=== PATIENT | female | born 1950 | race Caucasian/White ===

== ENCOUNTER → 2017-11-26 | Outpatient (CLI) | payer MEDICARE, OTHER ==
[~2017-11-26] MED LIST: (None)20 M1 PO; ALBU2.5V5 NEB; ALBU90OI6; ANORO ELLIPTA1 EACH INH; CETI5; Duoneb 2.5-0.5 M3 ML INH; Flovent 220 Ora12 GM; MAGCHL64ER; MAGNESIUM PO; NEBI5 PO; PYRIDOXINE PO; TUSSIONEX PENN115 ML; VITAMIN D2400 UNIT PO; Zantac150 MG PO; [UNRECOGNIZED DRUG - OTHER] PO
[2017-11-26 11:43] LABS: Influenza A Negative (NEGATIVE); Influenza B Negative (NEGATIVE)
== END | disposition home or self-care (01) ==
LOC: LAB 11:16
PROVIDERS: Hospitalist
DX: J20.9 Acute bronchitis, unspecified (principal); R05 Cough
CPT/HCPCS: 87804

== ENCOUNTER 2018-04-20 15:24 | Emergency (ER) | payer MEDICARE, OTHER ==
[~2018-04-20] VITALS: Ht 160 cm; Wt 74.8 kg
[2018-04-20] MEDS ORDERED: MAGCHL64ER (15:31)
[2018-04-20] MEDS ORDERED: ALBU90OI6 (15:31)
[2018-04-20] MEDS ORDERED: NEBI5 PO (15:31)
[2018-04-20] MEDS ORDERED: ANORO ELLIPTA1 EACH INH (15:32)
[2018-04-20] MEDS ORDERED: TUSSIONEX PENN115 ML (15:32)
[2018-04-20] MEDS ORDERED: Zantac150 MG PO (15:32)
[2018-04-20] MEDS ORDERED: CETI5 (15:32)
[2018-04-20] MEDS ORDERED: Flovent 220 Ora12 GM (15:32)
[2018-04-20] MEDS ORDERED: PYRIDOXINE PO (15:55)
[2018-04-20] MEDS ORDERED: MAGNESIUM PO (15:55)
[2018-04-20 15:56] LABS: BASOPHILS ABSOLUTE AUTO 0.06 K/mm3 (0.00-0.23); BASOPHILS PERCENT AUTO 1 % (0-2); EOSINOPHILS ABSOLUTE AUTO 0.15 K/mm3 (0.00-0.68); EOSINOPHILS PERCENT AUTO 2 % (0-6); Hematocrit 48.2 % (33.0-51.0); Hemoglobin 15.9 g/dL (11.5-16.0); IMMATURE GRAN ABSOLUTE AUTO 0.02 K/mm3 (0.00-0.10); IMMATURE GRAN PERCENT AUTO 0 % (0-1); LYMPHOCYTES ABSOLUTE AUTO 1.59 K/mm3 (0.84-5.20); LYMPHOCYTES PERCENT AUTO 21 % (21-46); MONOCYTES ABSOLUTE AUTO 0.72 K/mm3 (0.16-1.47); MONOCYTES PERCENT AUTO 9 % (4-13); Mean Corpuscular HGB 29.7 pg (26.0-34.0); Mean Corpuscular Volume 90 fL (80-100); Mean Platelet Volume 9.9 fL (9.1-12.4); NEUTROPHILS ABSOLUTE AUTO 5.09 K/mm3 (1.96-9.15); NEUTROPHILS PERCENT AUTO 67 % (41-73); Platelet Count 261 K/mm3 (150-400); RDW Coefficient Variation 12.5 % (11.7-14.2); RDW Standard Deviation 40.8 fL (35.1-46.3); Red Blood Cell Count 5.35 M/mm3 (3.80-5.20); White Blood Cell Count 7.63 K/mm3 (4.00-11.30)
[2018-04-20] MEDS ORDERED: [UNRECOGNIZED DRUG - OTHER] PO (15:58)
[2018-04-20] MEDS ORDERED: VITAMIN D2400 UNIT PO (15:58)
[2018-04-20 16:24] LABS: Alanine Aminotransfer (ALT/SGP 34 U/L (12-78); Albumin, Blood 3.6 g/dL (3.4-5.0); Albumin/Globulin Ratio 0.9 (0.8-1.8); Alk Phos 139 U/L (50-136); Anion Gap 7 mmol/L (6-16); Aspartate Aminotrans (AST/SGOT 22 U/L (12-37); Bilirubin, Total 0.2 mg/dL (0.1-1.0); Blood Urea Nitrogen 18 mg/dL (8-24); Bun/Creatinine Ratio 15.1 (12.0-20.0); CO2, Blood 26 mmol/L (21-32); Calcium, Blood 8.9 mg/dL (8.5-10.1); Chloride, Blood 109 mmol/L (98-108); Creatinine, Blood 1.19 mg/dL (0.40-1.00); Globulin, Blood 3.8 g/dL (2.2-4.0); Glomerular Filtration Rate 48 (60-); Glucose, Blood 101 mg/dL (70-99); Potassium, Blood 4.1 mmol/L (3.5-5.5); Sodium, Blood 142 mmol/L (136-145); Total Protein, Blood 7.4 g/dL (6.4-8.2); Troponin I <0.015 ng/mL (0.000-0.040)
[2018-04-20] MEDS ORDERED: (None)20 M1 PO (17:25)
[2018-04-20] MEDS ORDERED: ALBU2.5V5 NEB (17:25)
[2018-04-20] MEDS ORDERED: Duoneb 2.5-0.5 M3 ML INH (17:25)
== END 2018-04-20 17:45 | disposition home or self-care (01) ==
LOC: ER 15:24
PROVIDERS: Physician Assistant
DX: J44.1 Chronic obstructive pulmonary disease with (acute) exacerbation (principal); Z88.2 Allergy status to sulfonamides; Z79.899 Other long term (current) drug therapy; Z79.891 Long term (current) use of opiate analgesic; K21.9 Gastro-esophageal reflux disease without esophagitis; I10 Essential (primary) hypertension; Z85.118 Personal history of other malignant neoplasm of bronchus and lung
CPT/HCPCS: 36415; 71046; 80053; 84484; 85025; 93005; 93010; 94644; 96374; 99284; J2930; J7120

== ENCOUNTER → 2018-07-22 | Outpatient (CLI) | payer MEDICARE, OTHER | END | disposition home or self-care (01) | LOC: LAB SHORT 14:56 → LAB 14:56 | DX: Z11.59 Encounter for screening for other viral diseases (principal) | CPT/HCPCS: 86803 ==

== ENCOUNTER → 2018-12-03 | Outpatient (CLI) | payer MEDICARE, OTHER ==
[2018-12-03 13:44] LABS: Creatinine, Blood 1.02 mg/dL (0.40-1.00)
== END | disposition home or self-care (01) ==
LOC: LAB 12:55 → LAB SHORT 12:55
PROVIDERS: Hospitalist
DX: R10.11 Right upper quadrant pain (principal)
CPT/HCPCS: 82565; 84520

== ENCOUNTER → 2019-06-16 | Outpatient (CLI) | payer MEDICARE, OTHER | END | disposition home or self-care (01) | LOC: LAB 18:37 → LAB SHORT 18:37 | DX: N39.0 Urinary tract infection, site not specified (principal) | CPT/HCPCS: 87086 ==

== ENCOUNTER → 2019-07-26 | Outpatient (CLI) | payer MEDICARE, OTHER | END | disposition home or self-care (01) | LOC: LAB 18:00 → LAB SHORT 18:00 | DX: E55.9 Vitamin D deficiency, unspecified (principal) | CPT/HCPCS: 82306 ==

== ENCOUNTER 2019-09-10 11:47 | Emergency (ER) | payer MEDICARE, OTHER ==
[~2019-09-10] VITALS: Ht 160 cm; Wt 76.2 kg
[~2019-09-10 11:47] MED LIST changes: +ERGO50000 PO; -VITAMIN D2400 UNIT PO
[2019-09-10] MEDS ORDERED: OMEPRAZOLE20 MG (13:58)
== END 2019-09-10 14:23 | disposition home or self-care (01) ==
LOC: ER 11:47
DX: R10.11 Right upper quadrant pain (principal); J44.9 Chronic obstructive pulmonary disease, unspecified; K21.9 Gastro-esophageal reflux disease without esophagitis; I10 Essential (primary) hypertension; Z85.118 Personal history of other malignant neoplasm of bronchus and lung; Z86.711 Personal history of pulmonary embolism; Z87.891 Personal history of nicotine dependence; Z88.2 Allergy status to sulfonamides; Z91.018 Allergy to other foods; Z91.048 Other nonmedicinal substance allergy status; Z79.899 Other long term (current) drug therapy; Z79.891 Long term (current) use of opiate analgesic
CPT/HCPCS: 74176; 99284-25

== ENCOUNTER → 2019-11-14 | Outpatient (CLI) | payer MEDICARE, OTHER ==
[~2019-11-14] MED LIST changes: +OMEPRAZOLE20 MG
== END | disposition home or self-care (01) ==
LOC: LAB 17:22 → LAB SHORT 17:22
DX: N39.0 Urinary tract infection, site not specified (principal)
CPT/HCPCS: 87086

== ENCOUNTER → 2020-01-25 | Outpatient (CLI) | payer MEDICARE, OTHER | END | disposition home or self-care (01) | LOC: LAB SHORT 13:49 → LAB 13:49 | DX: E55.9 Vitamin D deficiency, unspecified (principal) | CPT/HCPCS: 82306 ==

== ENCOUNTER → 2020-03-12 | Outpatient (CLI) | payer MEDICARE, OTHER | END | disposition home or self-care (01) | LOC: LAB 18:11 → LAB SHORT 18:11 | DX: N39.0 Urinary tract infection, site not specified (principal) | CPT/HCPCS: 87077; 87086; 87186 ==

== ENCOUNTER 2020-03-15 21:06 | Emergency (ER) | payer MEDICARE, OTHER ==
[~2020-03-15] VITALS: Ht 160 cm; Wt 79.4 kg
== END 2020-03-15 23:32 | disposition left against medical advice (07) ==
LOC: ER 21:06
DX: Z53.21 Procedure and treatment not carried out due to patient leaving prior to being seen by health care provider (principal)
CPT/HCPCS: 93005; 93010; 99284-25

== ENCOUNTER → 2020-07-24 | Outpatient (CLI) | payer MEDICARE, OTHER ==
[2020-07-24 18:21] LABS: Alanine Aminotransfer (ALT/SGP 35 U/L (12-78); Albumin, Blood 3.6 g/dL (3.4-5.0); Albumin/Globulin Ratio 1.1 (0.8-1.8); Alk Phos 158 U/L (50-136); Anion Gap 6 mmol/L (6-16); Aspartate Aminotrans (AST/SGOT 26 U/L (12-37); Bilirubin, Total 0.2 mg/dL (0.1-1.0); Blood Urea Nitrogen 13 mg/dL (8-24); Bun/Creatinine Ratio 16.2 (12.0-20.0); CO2, Blood 28 mmol/L (21-32); Calcium, Blood 9.1 mg/dL (8.5-10.1); Chloride, Blood 109 mmol/L (98-108); Globulin, Blood 3.3 g/dL (2.2-4.0); Glomerular Filtration Rate >60 (60-); Glucose, Blood 137 mg/dL (70-99); Potassium, Blood 4.5 mmol/L (3.5-5.5); Sodium, Blood 143 mmol/L (136-145); Total Protein, Blood 6.9 g/dL (6.4-8.2)
== END | disposition home or self-care (01) ==
LOC: LAB 15:29 → LAB SHORT 15:29
PROVIDERS: Hospitalist
DX: M25.50 Pain in unspecified joint (principal)
CPT/HCPCS: 80053; 85651

== ENCOUNTER 2020-12-17 17:41 | Inpatient (IN) | payer MEDICARE, OTHER ==
[~2020-12-17] VITALS: Ht 160 cm; Wt 81.7 kg
[~2020-12-17 17:41] MED LIST changes: -ERGO50000 PO; -OMEPRAZOLE20 MG; +OMEPRAZOLE20 MG PO; +THERA-D2000 UNIT PO
[2020-12-17] MEDS ORDERED: ANORO ELLIPTA1 EAC1 INH (19:38)
[2020-12-17] MEDS ORDERED: FLOVENT HFA12 GM INH (19:38)
[2020-12-17] MEDS ORDERED: ESCITALOPRAM OX10 M1 PO (19:39)
[2020-12-17] MEDS ORDERED: TRIM100 PO (19:39)
[2020-12-17] MEDS ORDERED: TUSSIONEX PO (19:42)
[2020-12-17] MEDS ORDERED: Ventolin/Prove6.7 GM INH (19:44)
[2020-12-17] MEDS ORDERED: ATROVENT HFA12.9 GM INH (22:24)
[2020-12-17] MEDS ORDERED: MELATONIN5 M1 PO (22:24)
[2020-12-17] MEDS ORDERED: LICORICE EXTRACT PO (22:25)
--- NOTE | 2020-12-17 22:41 | NUR ---
NEW ADMIT FROM ER FOR RIGHT SHOULDER FX S/P GLF. PT WAS ABLE TO STAND AND AMBULATE TO BR WITH SBA. RIGHT ARM IN SLING, PAPLABLE PULSES, BRISK CAP REFILL. DOES HAVE LARGE NOTICEABLE DEFORMITY/SWELLING TO ANTERIOR RIGHT SHOULDER, HAS BRUISING TO RIGHT WRIST, AND SMALL ABRASIONS TO TOP OF RIGHT TOES R/T FALL. PT WAS C/O PAIN AND NAUSEA R/T PAIN. WAS MEDICTED WITH ZOFRAN AND FENT. COVID SWAB WAS DONE AND SENT TO LAB. REVIEWED ORDERS AND TREATMENT PLAN WITH PT AND SPOUSE. NO FURTHER QUESTIONS. SURGICAL PACKET ON CHART. WAITING FOR ORTHO CONSULT IN AM.
[2020-12-17 22:56] LABS: Influenza A, PCR NEGATIVE (NEGATIVE); Influenza B, PCR NEGATIVE (NEGATIVE); Resp Syncytial Virus, PCR NEGATIVE (NEGATIVE); SARS-Cov-2 (COVID-19) PCR, MMC NEGATIVE (NEGATIVE)
--- NOTE | 2020-12-18 03:21 | NUR ---
SHIFT SUMMARY: RIGHT SHOULDER FRACTURE PATIENT IS ALERT AND ORIENTED X4 WHILE AWAKE. HER BP HAS BEEN ELEVATED BUT OTHERWISE VS ARE WNL AND ON RA. PAIN IS CONTROLLED WITH IV DILAUDID AND PO NORCO. PATIENT IS ON A BIOX. SHE VOIDED WHEN FIRST ARRIVING ON THE UNIT. SHE IS ABLE TO AMBULATE A SBA. SHE HAS SCABS ON THE TOPS OF HER RIGHT TOES. SHE DOES HAVE SIGNIFICANT SWELLING TO THE RIGHT SHOULDER. THE SHOULDER IS ELEVATED ON A PILLOW WELL IN A SLING. PATIENT HAS FULL SENSATION TO ALL EXTREMITIES AND IS ABLE TO WIGGLE TOES AND FINGERS. PATIENT IS LAYING COMFORTABLY IN BED AT THIS TIME WITH AN ICE PACK ON HER RIGHT SHOULDER. CALL LIGHT WITHIN REACH. THE PLAN IS TO HAVE A ORTHO CONSULT TODAY FOR POSSIBLE SURGERY AND TO HAVE PAIN UNDER CONTROL.
[2020-12-18 04:53] LABS: BASOPHILS ABSOLUTE AUTO 0.05 K/mm3 (0.00-0.23); BASOPHILS PERCENT AUTO 0 % (0-2); EOSINOPHILS ABSOLUTE AUTO 0.03 K/mm3 (0.00-0.68); EOSINOPHILS PERCENT AUTO 0 % (0-6); Hematocrit 44.2 % (33.0-51.0); Hemoglobin 14.5 g/dL (11.5-16.0); IMMATURE GRAN ABSOLUTE AUTO 0.04 K/mm3 (0.00-0.10); IMMATURE GRAN PERCENT AUTO 0 % (0-1); LYMPHOCYTES PERCENT AUTO 14 % (21-46); MONOCYTES ABSOLUTE AUTO 0.82 K/mm3 (0.16-1.47); MONOCYTES PERCENT AUTO 7 % (4-13); Mean Corpuscular HGB 29.3 pg (26.0-34.0); Mean Corpuscular HGB Conc 32.8 g/dL (31.5-36.5); Mean Corpuscular Volume 89 fL (80-100); Mean Platelet Volume 9.9 fL (9.1-12.4); NEUTROPHILS ABSOLUTE AUTO 8.69 K/mm3 (1.96-9.15); NEUTROPHILS PERCENT AUTO 78 % (41-73); Platelet Count 256 K/mm3 (150-400); RDW Coefficient Variation 12.4 % (11.7-14.2); RDW Standard Deviation 40.7 fL (35.1-46.3); Red Blood Cell Count 4.95 M/mm3 (3.80-5.20); White Blood Cell Count 11.13 K/mm3 (4.00-11.30)
[2020-12-18 05:07] LABS: Anion Gap 6 mmol/L (6-16); Blood Urea Nitrogen 17 mg/dL (8-24); Bun/Creatinine Ratio 18.6 (12.0-20.0); CO2, Blood 27 mmol/L (21-32); Calcium, Blood 8.5 mg/dL (8.5-10.1); Chloride, Blood 105 mmol/L (98-108); Creatinine, Blood 0.91 mg/dL (0.40-1.00); Glomerular Filtration Rate >60 (60-); Glucose, Blood 124 mg/dL (70-99); Potassium, Blood 4.3 mmol/L (3.5-5.5); Sodium, Blood 138 mmol/L (136-145)
--- NOTE | 2020-12-18 12:16 | NUR ---
PT STATES PAIN IS BETTER MANAGED WITH NEW PAIN MEDICATION CHANGED THIS AM. SATS REMAIN GREATER THAN 94% WHILE IN BED.
--- NOTE | 2020-12-18 16:29 | NUR ---
Resumed care of patient. Patient sitting up in recliner chair. Ice to R shoulder. Patient rates pain 2/10. Spouse at bedside. Call light within patient reach.
--- NOTE | 2020-12-19 03:31 | NUR ---
SHIFT SUMMARY PT IS A/O X4. SBA UP TO BATHROOM. SLING IN PLACE TO R ARM AND ARM RESTING IN PILLOWS OVERNIGHT FOR COMFORT. REPOSITIONED PRN. USING 2L O2 NC WHICH IS BASELINE FOR HER. IV FLUIDS INFUSING OVERNIGHT PER ORDERS. PT C/O 9-08/18 PAIN; DISCUSSED WITH HOSPITALIST AND OBTAINED ORDER FOR LIDOCAINE PATCH AND CHANGED ORDER FOR NORCO. INCREASED NORCO DOSE SEEMS TO BE MANAGING PAIN MUCH BETTER. PT RESTING IN BED AT THIS TIME WITH CALL LIGHT IN REACH.
[2020-12-19] MEDS ORDERED: CARV3.125 PO (13:57)
[2020-12-19] MEDS ORDERED: ACET325 (13:57)
[2020-12-19] MEDS ORDERED: PERCOCET 10-321 EAC5 PO (13:58)
[2020-12-19] MEDS ORDERED: DOCU100 PO (13:58)
[2020-12-19] MEDS ORDERED: SENN187 PO (13:58)
--- NOTE | 2020-12-19 16:26 | NUR ---
Patient discharged home. IV out. Discharge instructions given, explained and signed. Patient to follow up with PCP and Ortho. Prescriptions given to patient. Patient/spouse denied questions at discharge.
== END 2020-12-19 16:45 | disposition home or self-care (01) | DRG 563 ==
LOC: ER 17:41 → ERHOLD 17:42 → SURS 17:42
PROVIDERS: Orthopaedic Surgery; ADMIT Family Medicine
PROC: 2W3AX1Z Immobilization of Right Upper Arm using Splint (ICD-10-PCS; principal; 2020-12-17)
DX: S42.201A Unspecified fracture of upper end of right humerus, initial encounter for closed fracture (principal); Z20.822 Contact with and (suspected) exposure to COVID-19; J44.9 Chronic obstructive pulmonary disease, unspecified; K21.9 Gastro-esophageal reflux disease without esophagitis; I12.9 Hypertensive chronic kidney disease with stage 1 through stage 4 chronic kidney disease, or unspecified chronic kidney disease; N18.30 Chronic kidney disease, stage 3 unspecified; W19.XXXA Unspecified fall, initial encounter; E66.9 Obesity, unspecified; Z68.31 Body mass index [BMI] 31.0-31.9, adult; Z85.038 Personal history of other malignant neoplasm of large intestine; Z85.118 Personal history of other malignant neoplasm of bronchus and lung; Z86.718 Personal history of other venous thrombosis and embolism; Z87.891 Personal history of nicotine dependence
CPT/HCPCS: 0241U; 36415; 71045; 73030; 73060; 73100; 73120; 73200; 76377; 80048; 80053; 85025; 86803; 94760; 94762; 96374; 96375; 96376; 97110; 97110-CQ; 97116; 97116-CQ; 97162; 97165; 97530; 97535-CO; 99285-25; A9270; G0378; J1170; J1885; J2405; J3010; J7030

== ENCOUNTER → 2022-07-23 | Outpatient (CLI) | payer MEDICARE ==
[~2022-07-23] MED LIST changes: +ACET325; +ANORO ELLIPTA1 EAC1 INH; +ATROVENT HFA12.9 GM INH; +CARV3.125 PO; +DOCU100 PO; +ESCITALOPRAM OX10 M1 PO; +FLOVENT HFA12 GM INH; +LICORICE EXTRACT PO; +MELATONIN5 M1 PO; +PERCOCET 10-321 EAC5 PO; +SENN187 PO; +TRIM100 PO; +TUSSIONEX PO; +Ventolin/Prove6.7 GM INH
[2022-07-23 15:42] LABS: BASOPHILS ABSOLUTE AUTO 0.07 K/mm3 (0.00-0.23); BASOPHILS PERCENT AUTO 1 % (0-2); EOSINOPHILS ABSOLUTE AUTO 0.15 K/mm3 (0.00-0.68); EOSINOPHILS PERCENT AUTO 2 % (0-6); Hematocrit 45.5 % (33.0-51.0); Hemoglobin 15.2 g/dL (11.5-16.0); IMMATURE GRAN ABSOLUTE AUTO 0.01 K/mm3 (0.00-0.10); IMMATURE GRAN PERCENT AUTO 0 % (0-1); LYMPHOCYTES ABSOLUTE AUTO 1.45 K/mm3 (0.84-5.20); LYMPHOCYTES PERCENT AUTO 19 % (21-46); MONOCYTES ABSOLUTE AUTO 0.66 K/mm3 (0.16-1.47); MONOCYTES PERCENT AUTO 9 % (4-13); Mean Corpuscular HGB 29.5 pg (26.0-34.0); Mean Corpuscular HGB Conc 33.4 g/dL (31.5-36.5); Mean Corpuscular Volume 88 fL (80-100); Mean Platelet Volume 10.5 fL (9.1-12.4); NEUTROPHILS ABSOLUTE AUTO 5.14 K/mm3 (1.96-9.15); NEUTROPHILS PERCENT AUTO 69 % (41-73); Platelet Count 268 K/mm3 (150-400); RDW Coefficient Variation 12.5 % (11.7-14.2); RDW Standard Deviation 40.8 fL (35.1-46.3); Red Blood Cell Count 5.16 M/mm3 (3.80-5.20); White Blood Cell Count 7.48 K/mm3 (4.00-11.30)
== END | disposition home or self-care (01) ==
LOC: LAB SHORT 11:26 → LAB 11:26
PROVIDERS: Hospitalist
DX: K92.1 Melena (principal)
CPT/HCPCS: 85025

== ENCOUNTER → 2023-03-10 | Outpatient (CLI) | payer MEDICARE | END | disposition home or self-care (01) | LOC: LAB SHORT 17:00 → LAB 17:00 | DX: N30.00 Acute cystitis without hematuria (principal) | CPT/HCPCS: 87077; 87086; 87186 ==

== ENCOUNTER → 2023-04-28 | Outpatient (CLI) | payer MEDICARE ==
[2023-04-28 19:38] LABS: BASOPHILS ABSOLUTE AUTO 0.06 K/mm3 (0.00-0.23); BASOPHILS PERCENT AUTO 1 % (0-2); EOSINOPHILS ABSOLUTE AUTO 0.14 K/mm3 (0.00-0.68); EOSINOPHILS PERCENT AUTO 2 % (0-6); Hemoglobin 15.1 g/dL (11.5-16.0); IMMATURE GRAN ABSOLUTE AUTO 0.02 K/mm3 (0.00-0.10); IMMATURE GRAN PERCENT AUTO 0 % (0-1); LYMPHOCYTES ABSOLUTE AUTO 1.69 K/mm3 (0.84-5.20); LYMPHOCYTES PERCENT AUTO 22 % (21-46); MONOCYTES ABSOLUTE AUTO 0.51 K/mm3 (0.16-1.47); MONOCYTES PERCENT AUTO 7 % (4-13); Mean Corpuscular HGB 30.6 pg (26.0-34.0); Mean Corpuscular HGB Conc 33.6 g/dL (31.5-36.5); Mean Corpuscular Volume 91 fL (80-100); Mean Platelet Volume 10.7 fL (9.1-12.4); NEUTROPHILS ABSOLUTE AUTO 5.26 K/mm3 (1.96-9.15); NEUTROPHILS PERCENT AUTO 69 % (41-73); Platelet Count 282 K/mm3 (150-400); RDW Coefficient Variation 12.3 % (11.7-14.2); RDW Standard Deviation 40.3 fL (35.1-46.3); Red Blood Cell Count 4.94 M/mm3 (3.80-5.20); White Blood Cell Count 7.68 K/mm3 (4.00-11.30)
[2023-04-28 20:17] LABS: Albumin, Blood 3.6 g/dL (3.4-5.0); Albumin/Globulin Ratio 1.3 (0.8-1.8); Bilirubin, Total 0.3 mg/dL (0.1-1.0); Bun/Creatinine Ratio 19.4 (12.0-20.0); Calcium, Blood 9.3 mg/dL (8.5-10.1); Creatinine, Blood 0.93 mg/dL (0.40-1.00); Globulin, Blood 2.8 g/dL (2.2-4.0); Potassium, Blood 4.5 mmol/L (3.5-5.5); Total Protein, Blood 6.4 g/dL (6.4-8.2)
== END ==
LOC: LAB 15:10 → LAB SHORT 15:10
PROVIDERS: Hospitalist
DX: R10.11 Right upper quadrant pain (principal)
CPT/HCPCS: 80053; 85025; 86140

== ENCOUNTER → 2023-07-16 | Outpatient (CLI) | payer MEDICARE ==
[2023-07-16 19:39] LABS: BASOPHILS ABSOLUTE AUTO 0.06 K/mm3 (0.00-0.23); BASOPHILS PERCENT AUTO 1 % (0-2); EOSINOPHILS ABSOLUTE AUTO 0.13 K/mm3 (0.00-0.68); EOSINOPHILS PERCENT AUTO 2 % (0-6); Hematocrit 46.3 % (33.0-51.0); Hemoglobin 15.4 g/dL (11.5-16.0); IMMATURE GRAN ABSOLUTE AUTO 0.02 K/mm3 (0.00-0.10); IMMATURE GRAN PERCENT AUTO 0 % (0-1); LYMPHOCYTES ABSOLUTE AUTO 1.34 K/mm3 (0.84-5.20); LYMPHOCYTES PERCENT AUTO 18 % (21-46); MONOCYTES ABSOLUTE AUTO 0.52 K/mm3 (0.16-1.47); MONOCYTES PERCENT AUTO 7 % (4-13); Mean Corpuscular HGB 30.1 pg (26.0-34.0); Mean Corpuscular HGB Conc 33.3 g/dL (31.5-36.5); Mean Corpuscular Volume 91 fL (80-100); Mean Platelet Volume 10.6 fL (9.1-12.4); NEUTROPHILS ABSOLUTE AUTO 5.53 K/mm3 (1.96-9.15); NEUTROPHILS PERCENT AUTO 73 % (41-73); Platelet Count 280 K/mm3 (150-400); RDW Coefficient Variation 12.1 % (11.7-14.2); Red Blood Cell Count 5.11 M/mm3 (3.80-5.20)
== END | disposition home or self-care (01) ==
LOC: LAB 17:50 → LAB SHORT 17:50
PROVIDERS: Hospitalist
DX: R73.9 Hyperglycemia, unspecified (principal); R23.2 Flushing
CPT/HCPCS: 83036; 85025; 86140

== ENCOUNTER → 2023-09-06 | Outpatient (CLI) | payer MEDICARE ==
[2023-09-06 16:19] LABS: Source, Urine Clean Catch
[2023-09-06 16:39] LABS: Bacteria Few /hpf; Red Blood Cells, Urine 0-2 /hpf (0-2); Squamous Epithelial Cells Mod /hpf (Few); White Blood Cells, Urine 0-2 /hpf (0-5)
== END ==
LOC: LAB SHORT 16:17 → LAB 16:17
PROVIDERS: Family Medicine
DX: R30.0 Dysuria (principal)
CPT/HCPCS: 81015; 87077; 87086; 87186

== ENCOUNTER → 2023-10-02 | Outpatient (CLI) | payer MEDICARE ==
[2023-10-02 12:01] LABS: BASOPHILS ABSOLUTE AUTO 0.02 K/mm3 (0.00-0.23); BASOPHILS PERCENT AUTO 0 % (0-2); EOSINOPHILS ABSOLUTE AUTO 0.08 K/mm3 (0.00-0.68); EOSINOPHILS PERCENT AUTO 1 % (0-6); Hematocrit 45.7 % (33.0-51.0); Hemoglobin 15.3 g/dL (11.5-16.0); IMMATURE GRAN ABSOLUTE AUTO 0.04 K/mm3 (0.00-0.10); IMMATURE GRAN PERCENT AUTO 0 % (0-1); LYMPHOCYTES ABSOLUTE AUTO 1.46 K/mm3 (0.84-5.20); LYMPHOCYTES PERCENT AUTO 13 % (21-46); MONOCYTES ABSOLUTE AUTO 0.97 K/mm3 (0.16-1.47); MONOCYTES PERCENT AUTO 9 % (4-13); Mean Corpuscular HGB 30.4 pg (26.0-34.0); Mean Corpuscular HGB Conc 33.5 g/dL (31.5-36.5); Mean Corpuscular Volume 91 fL (80-100); Mean Platelet Volume 9.5 fL (9.1-12.4); NEUTROPHILS PERCENT AUTO 77 % (41-73); Platelet Count 286 K/mm3 (150-400); RDW Coefficient Variation 12.5 % (11.7-14.2); RDW Standard Deviation 41.1 fL (35.1-46.3); Red Blood Cell Count 5.03 M/mm3 (3.80-5.20); White Blood Cell Count 11.07 K/mm3 (4.00-11.30)
[2023-10-02 12:10] LABS: Albumin, Blood 3.4 g/dL (3.4-5.0); Albumin/Globulin Ratio 0.9 (0.8-1.8); Bilirubin, Total 0.4 mg/dL (0.1-1.0); Bun/Creatinine Ratio 16.1 (12.0-20.0); Calcium, Blood 9.1 mg/dL (8.5-10.1); Creatinine, Blood 0.87 mg/dL (0.40-1.00); Potassium, Blood 4.3 mmol/L (3.5-5.5); Total Protein, Blood 7.4 g/dL (6.4-8.2)
[2023-10-05 15:11] LABS: C DIFFICILE DNA POSITIVE (Negative)
== END ==
LOC: LAB SHORT 11:56 → LAB 11:56
PROVIDERS: Chiropractor
DX: K52.1 Toxic gastroenteritis and colitis (principal)
CPT/HCPCS: 80053; 85025; 87324; 87493

== ENCOUNTER → 2023-10-10 | Outpatient (CLI) | payer MEDICARE ==
[2023-10-10 15:57] LABS: BASOPHILS ABSOLUTE AUTO 0.04 K/mm3 (0.00-0.23); BASOPHILS PERCENT AUTO 0 % (0-2); EOSINOPHILS ABSOLUTE AUTO 0.09 K/mm3 (0.00-0.68); EOSINOPHILS PERCENT AUTO 1 % (0-6); Hematocrit 46.4 % (33.0-51.0); Hemoglobin 15.6 g/dL (11.5-16.0); IMMATURE GRAN ABSOLUTE AUTO 0.05 K/mm3 (0.00-0.10); IMMATURE GRAN PERCENT AUTO 1 % (0-1); LYMPHOCYTES ABSOLUTE AUTO 1.22 K/mm3 (0.84-5.20); LYMPHOCYTES PERCENT AUTO 13 % (21-46); MONOCYTES ABSOLUTE AUTO 0.74 K/mm3 (0.16-1.47); MONOCYTES PERCENT AUTO 8 % (4-13); Mean Corpuscular HGB 30.1 pg (26.0-34.0); Mean Corpuscular HGB Conc 33.6 g/dL (31.5-36.5); Mean Corpuscular Volume 89 fL (80-100); Mean Platelet Volume 9.3 fL (9.1-12.4); NEUTROPHILS ABSOLUTE AUTO 7.06 K/mm3 (1.96-9.15); NEUTROPHILS PERCENT AUTO 77 % (41-73); Platelet Count 330 K/mm3 (150-400); RDW Coefficient Variation 12.2 % (11.7-14.2); RDW Standard Deviation 39.7 fL (35.1-46.3); Red Blood Cell Count 5.19 M/mm3 (3.80-5.20)
[2023-10-10 16:07] LABS: Albumin, Blood 3.4 g/dL (3.4-5.0); Albumin/Globulin Ratio 0.8 (0.8-1.8); Bilirubin, Total 0.3 mg/dL (0.1-1.0); Bun/Creatinine Ratio 8.9 (12.0-20.0); Calcium, Blood 9.4 mg/dL (8.5-10.1); Creatinine, Blood 1.01 mg/dL (0.40-1.00); Globulin, Blood 4.2 g/dL (2.2-4.0); Potassium, Blood 4.4 mmol/L (3.5-5.5); Total Protein, Blood 7.6 g/dL (6.4-8.2)
== END | disposition home or self-care (01) ==
LOC: LAB SHORT 15:51 → LAB 15:51
PROVIDERS: Emergency Medicine
DX: R10.9 Unspecified abdominal pain (principal)
CPT/HCPCS: 80053; 83690; 83735; 85025

== ENCOUNTER → 2023-10-14 | Outpatient (CLI) | payer MEDICARE ==
[~2023-10-14] MED LIST changes: +VISBIOME 112.51 EACH PO
[2023-10-14 16:28] LABS: BASOPHILS ABSOLUTE AUTO 0.05 K/mm3 (0.00-0.23); BASOPHILS PERCENT AUTO 0 % (0-2); EOSINOPHILS ABSOLUTE AUTO 0.11 K/mm3 (0.00-0.68); EOSINOPHILS PERCENT AUTO 1 % (0-6); Hematocrit 44.8 % (33.0-51.0); Hemoglobin 15.2 g/dL (11.5-16.0); IMMATURE GRAN ABSOLUTE AUTO 0.05 K/mm3 (0.00-0.10); IMMATURE GRAN PERCENT AUTO 0 % (0-1); LYMPHOCYTES ABSOLUTE AUTO 1.23 K/mm3 (0.84-5.20); LYMPHOCYTES PERCENT AUTO 11 % (21-46); MONOCYTES ABSOLUTE AUTO 0.87 K/mm3 (0.16-1.47); MONOCYTES PERCENT AUTO 8 % (4-13); Mean Corpuscular HGB 29.8 pg (26.0-34.0); Mean Corpuscular HGB Conc 33.9 g/dL (31.5-36.5); Mean Corpuscular Volume 88 fL (80-100); Mean Platelet Volume 9.5 fL (9.1-12.4); NEUTROPHILS ABSOLUTE AUTO 9.14 K/mm3 (1.96-9.15); NEUTROPHILS PERCENT AUTO 80 % (41-73); Platelet Count 321 K/mm3 (150-400); RDW Coefficient Variation 12.2 % (11.7-14.2); White Blood Cell Count 11.45 K/mm3 (4.00-11.30)
[2023-10-14 16:37] LABS: Albumin, Blood 3.4 g/dL (3.4-5.0); Albumin/Globulin Ratio 0.8 (0.8-1.8); Bilirubin, Total 0.3 mg/dL (0.1-1.0); Bun/Creatinine Ratio 14.3 (12.0-20.0); Calcium, Blood 9.3 mg/dL (8.5-10.1); Creatinine, Blood 1.05 mg/dL (0.40-1.00); Globulin, Blood 4.1 g/dL (2.2-4.0); Potassium, Blood 3.5 mmol/L (3.5-5.5); Total Protein, Blood 7.5 g/dL (6.4-8.2)
== END | disposition home or self-care (01) ==
LOC: LAB SHORT 16:20 → LAB 16:20
PROVIDERS: Family Medicine
DX: K57.92 Diverticulitis of intestine, part unspecified, without perforation or abscess without bleeding (principal)
CPT/HCPCS: 80053; 85025; 86140

== ENCOUNTER 2023-10-16 10:20 | Inpatient (IN) | payer MEDICARE ==
[~2023-10-16] VITALS: Ht 160 cm; Wt 70.0 kg
[~2023-10-16 10:20] MED LIST changes: -VISBIOME 112.51 EACH PO
[2023-10-16 11:07] LABS: BASOPHILS ABSOLUTE AUTO 0.04 K/mm3 (0.00-0.23); BASOPHILS PERCENT AUTO 1 % (0-2); EOSINOPHILS ABSOLUTE AUTO 0.09 K/mm3 (0.00-0.68); EOSINOPHILS PERCENT AUTO 1 % (0-6); Hematocrit 43.2 % (33.0-51.0); Hemoglobin 14.2 g/dL (11.5-16.0); IMMATURE GRAN ABSOLUTE AUTO 0.02 K/mm3 (0.00-0.10); IMMATURE GRAN PERCENT AUTO 0 % (0-1); LYMPHOCYTES ABSOLUTE AUTO 1.25 K/mm3 (0.84-5.20); LYMPHOCYTES PERCENT AUTO 15 % (21-46); MONOCYTES ABSOLUTE AUTO 0.62 K/mm3 (0.16-1.47); MONOCYTES PERCENT AUTO 7 % (4-13); Mean Corpuscular HGB 29.5 pg (26.0-34.0); Mean Corpuscular HGB Conc 32.9 g/dL (31.5-36.5); Mean Corpuscular Volume 90 fL (80-100); Mean Platelet Volume 9.7 fL (9.1-12.4); NEUTROPHILS ABSOLUTE AUTO 6.34 K/mm3 (1.96-9.15); NEUTROPHILS PERCENT AUTO 76 % (41-73); Platelet Count 283 K/mm3 (150-400); RDW Coefficient Variation 12.2 % (11.7-14.2); RDW Standard Deviation 40.1 fL (35.1-46.3); Red Blood Cell Count 4.82 M/mm3 (3.80-5.20); White Blood Cell Count 8.36 K/mm3 (4.00-11.30)
[2023-10-16 11:37] LABS: Albumin, Blood 3.2 g/dL (3.4-5.0); Albumin/Globulin Ratio 0.8 (0.8-1.8); Bilirubin, Total 0.5 mg/dL (0.1-1.0); Bun/Creatinine Ratio 12.2 (12.0-20.0); Calcium, Blood 9.2 mg/dL (8.5-10.1); Creatinine, Blood 0.74 mg/dL (0.40-1.00); Globulin, Blood 4.1 g/dL (2.2-4.0); Potassium, Blood 3.7 mmol/L (3.5-5.5); Total Protein, Blood 7.3 g/dL (6.4-8.2)
[2023-10-16 12:07] LABS: Source, Urine Clean Catch
[2023-10-16 12:14] LABS: Bilirubin, Urine Neg (Neg); Blood, Urine 1+ (Neg); Glucose Qualitative, Urine Neg (Neg); Ketones, Urine Neg (Neg); Leukocyte Esterase, Urine 3+ (Neg); Nitrite, Urine Neg (Neg); Protein, Urine Neg (Neg); Urobilinogen, Urine NORM (Normal)
[2023-10-16 12:22] LABS: Color, Urine Pale Yellow (P-Yellow)
[2023-10-16 12:23] LABS: Appearance, Urine Hazy (Clear)
[2023-10-16 12:24] LABS: Bacteria Few /hpf; Mucus Light (0-Heavy); Red Blood Cells, Urine Not Seen /hpf (0-2); Squamous Epithelial Cells Few /hpf (Few)
[2023-10-16 15:50] VITALS: BP 156/79
--- NOTE | 2023-10-16 16:52 | NUR ---
PATIENT A NEW ADMIT THIS SHIFT, IND IN ROOM, IVF RUNNING. FULL LIQ DIET ORDERED, DENIES N/V. TOLERATING PO INTAKE. ONE BM AND STOOL SAMPLE SENT. VODING ADEQUATELY. ORIENTED TO ROOM AND CALL LIGHT IN REACH.
[2023-10-16 19:14] LABS: Adenovirus F 40/41 Not Detected (NOT DETECT); Astrovirus Not Detected (NOT DETECT); Campylobacter Sp Not Detected (NOT DETECT); Cryptosporidium Not Detected (NOT DETECT); Cyclospora Cayetanensis Not Detected (NOT DETECT); E. Coli O157 Not Detected (NOT DETECT); Entamoeba Histolytica Not Detected (NOT DETECT); Enteroaggregative E. coli-EAEC Not Detected (NOT DETECT); Enteropathogenic E. coli-EPEC Not Detected (NOT DETECT); Enterotoxigenic E. coli-ETEC Not Detected (NOT DETECT); Giardia Lamblia Not Detected (NOT DETECT); Norovirus GI/GII Not Detected (NOT DETECT); Plesiomonas Shigelloides Not Detected (NOT DETECT); Rotavirus A Not Detected (NOT DETECT); Salmonella Sp Not Detected (NOT DETECT); Sapovirus Not Detected (NOT DETECT); Shiga Toxin-prod E. coli-STEC Not Detected (NOT DETECT); Shigella/Enteroin E. coli-EIEC Not Detected (NOT DETECT); Vibrio Cholerae Not Detected (NOT DETECT); Vibrio Sp Not Detected (NOT DETECT); Yersinia Enterocolitica Not Detected (NOT DETECT)
[2023-10-16 20:18] VITALS: BP 156/53
[2023-10-17 04:16] VITALS: BP 147/58
[2023-10-17 05:09] LABS: Hemoglobin 11.7 g/dL (11.5-16.0); Mean Corpuscular HGB Conc 33.4 g/dL (31.5-36.5); Mean Corpuscular Volume 90 fL (80-100); Mean Platelet Volume 9.7 fL (9.1-12.4); Platelet Count 246 K/mm3 (150-400); RDW Coefficient Variation 12.2 % (11.7-14.2); RDW Standard Deviation 39.7 fL (35.1-46.3); White Blood Cell Count 5.52 K/mm3 (4.00-11.30)
[2023-10-17 05:34] LABS: Bun/Creatinine Ratio 8.8 (12.0-20.0); Calcium, Blood 8.4 mg/dL (8.5-10.1); Creatinine, Blood 0.68 mg/dL (0.40-1.00); Potassium, Blood 3.8 mmol/L (3.5-5.5)
[2023-10-17 07:17] VITALS: BP 174/62
--- NOTE | 2023-10-17 08:58 | NUR ---
PT WITH REPORT OF NAUSEA THIS AM.NO STOOLS PASSED SINCE C DIFF TEST SAMPLE. PT REMAINS IN ISO FOR + RESULT.
[2023-10-17 15:43] VITALS: BP 158/74
--- NOTE | 2023-10-17 17:09 | NUR ---
SUMMARY NO ACUTE CHANGES T/O SHIFT. PT INDEPENDENT IN ROOM. REPORTING HAS LOOSE BMS AFTER EATS. MEDICATED THIS EVENING PER ORDERS FOR LLQ PAIN. PT REPORTS PAIN IMPROVED TO 3/10 AFTER PAIN MED. PT MAY ADVANCE DIET TOLERATED. HAD BRING IN FOOD FROM HOME FOR LUNCH. TOLERATED W/O NAUSEA. ADVANCING TO REGULAR TRAY FOR DINNER. CALL LIGHT IN REACH.
[2023-10-17 19:18] VITALS: BP 142/57
--- NOTE | 2023-10-18 04:16 | NUR ---
SUMMARY PT HAS BEEN RESTING COMFORTABLY. PT HAS BEEN ABLE TO TOLERATE PO INTAKE. PT DISCOMFORT MANAGED WELL. PT HAS BEEN SLEEPING FOR MOST OF SHIFT. PT IN NO DISTRESS AND CALL LIGHT IN REACH.
[2023-10-18 05:37] VITALS: BP 141/60
[2023-10-18 05:42] LABS: Hematocrit 37.8 % (33.0-51.0); Hemoglobin 12.4 g/dL (11.5-16.0); Mean Corpuscular HGB 29.3 pg (26.0-34.0); Mean Corpuscular HGB Conc 32.8 g/dL (31.5-36.5); Mean Corpuscular Volume 89 fL (80-100); Mean Platelet Volume 9.9 fL (9.1-12.4); Platelet Count 277 K/mm3 (150-400); RDW Coefficient Variation 12.2 % (11.7-14.2); RDW Standard Deviation 39.4 fL (35.1-46.3); Red Blood Cell Count 4.23 M/mm3 (3.80-5.20); White Blood Cell Count 5.37 K/mm3 (4.00-11.30)
[2023-10-18 06:05] LABS: Bun/Creatinine Ratio 8.7 (12.0-20.0); Calcium, Blood 8.6 mg/dL (8.5-10.1); Creatinine, Blood 0.81 mg/dL (0.40-1.00); Potassium, Blood 3.7 mmol/L (3.5-5.5)
[2023-10-18 07:22] VITALS: BP 154/75
[2023-10-18] MEDS ORDERED: VISBIOME 112.51 EACH PO (13:17)
--- NOTE | 2023-10-18 15:10 | NUR ---
DISCHARGE SUMMARY PATIENT A/O X4 AND AGREEABLE TO DISCHARGE. GATHERED PATIENTS BELONGINGS, AND WENT OVER VERBAL AND WRITTEN DISCHARGE INSTRUCTIONS. PATIENT REPORTS NO PAIN AT THIS TIME. NO NAUSEA OR VOMITING THIS SHIFT, TOLERATING REG DIET. BOWEL TONES HYPERACTIVE, NO BOWEL MOVEMENTS REPORTED THIS SHIFT. IV REMOVED W/ CATH TIP INTACT. PATIENT AND BELONGINGS WHEELED OUT IN WHEELCHAIR BY [employer] PACK[employer] SEALER TO [employer] PERSONAL VEHICLE.
== END 2023-10-18 15:07 | disposition home or self-care (01) | DRG 392 ==
LOC: ER 10:20 → SURS 10:21 → EDBEDREQ 14:36 → SURS 14:51
PROVIDERS: Student in an Organized Health Care Education/Training Program; ADMIT Hospitalist
DX: K57.32 Diverticulitis of large intestine without perforation or abscess without bleeding (principal); I10 Essential (primary) hypertension; J44.9 Chronic obstructive pulmonary disease, unspecified; K21.9 Gastro-esophageal reflux disease without esophagitis; Z66 Do not resuscitate; Z22.8 Carrier of other infectious diseases; Z99.81 Dependence on supplemental oxygen; Z85.118 Personal history of other malignant neoplasm of bronchus and lung; Z90.2 Acquired absence of lung [part of]; Z88.2 Allergy status to sulfonamides; Z79.51 Long term (current) use of inhaled steroids; Z86.711 Personal history of pulmonary embolism; Z87.891 Personal history of nicotine dependence; Z86.19 Personal history of other infectious and parasitic diseases
CPT/HCPCS: 74177; 80048; 80053; 81001; 83605; 83690; 85025; 85027; 87324; 87507; 94640; 94664; 94760; 96361; 96365-59; 96366; 96367; 96372; 96376; 99285-25; A9270; C1751; G0378; J0696; J1650; J1885; J2405; J2543; J7030; J7050; J7120; Q9967

== ENCOUNTER 2024-01-01 22:01 | Emergency (ER) | payer MEDICARE ==
[~2024-01-01] VITALS: Ht 162.6 cm; Wt 74.8 kg
[~2024-01-01 22:01] MED LIST changes: +VISBIOME 112.51 EACH PO
[2024-01-01 22:30] LABS: BASOPHILS ABSOLUTE AUTO 0.05 K/mm3 (0.00-0.23); BASOPHILS PERCENT AUTO 1 % (0-2); EOSINOPHILS ABSOLUTE AUTO 0.13 K/mm3 (0.00-0.68); EOSINOPHILS PERCENT AUTO 2 % (0-6); Hemoglobin 14.8 g/dL (11.5-16.0); IMMATURE GRAN ABSOLUTE AUTO 0.04 K/mm3 (0.00-0.10); IMMATURE GRAN PERCENT AUTO 1 % (0-1); LYMPHOCYTES ABSOLUTE AUTO 1.55 K/mm3 (0.84-5.20); LYMPHOCYTES PERCENT AUTO 19 % (21-46); MONOCYTES ABSOLUTE AUTO 0.67 K/mm3 (0.16-1.47); MONOCYTES PERCENT AUTO 8 % (4-13); Mean Corpuscular HGB 29.4 pg (26.0-34.0); Mean Corpuscular HGB Conc 32.9 g/dL (31.5-36.5); Mean Corpuscular Volume 90 fL (80-100); Mean Platelet Volume 9.7 fL (9.1-12.4); NEUTROPHILS ABSOLUTE AUTO 5.65 K/mm3 (1.96-9.15); NEUTROPHILS PERCENT AUTO 70 % (41-73); Platelet Count 319 K/mm3 (150-400); RDW Coefficient Variation 12.3 % (11.7-14.2); RDW Standard Deviation 40.3 fL (35.1-46.3); Red Blood Cell Count 5.03 M/mm3 (3.80-5.20); White Blood Cell Count 8.09 K/mm3 (4.00-11.30)
[2024-01-01 22:51] LABS: Alanine Aminotransfer (ALT/SGP 24 U/L (12-78); Albumin, Blood 3.5 g/dL (3.4-5.0); Albumin/Globulin Ratio 0.8 (0.8-1.8); Alk Phos 121 U/L (50-136); Anion Gap Unable to Calculate mmol/L (6-16); Aspartate Aminotrans (AST/SGOT 22 U/L (12-37); Bilirubin, Total 0.4 mg/dL (0.1-1.0); Blood Urea Nitrogen 11 mg/dL (8-24); Bun/Creatinine Ratio 13.4 (12.0-20.0); CO2, Blood 31 mmol/L (21-32); Calcium, Blood 9.2 mg/dL (8.5-10.1); Chloride, Blood 110 mmol/L (98-108); Creatinine, Blood 0.82 mg/dL (0.40-1.00); Globulin, Blood 4.2 g/dL (2.2-4.0); Glomerular Filtration Rate 76 (60-); Glucose, Blood 145 mg/dL (70-99); Potassium, Blood 4.5 mmol/L (3.5-5.5); Sodium, Blood 140 mmol/L (136-145); Total Protein, Blood 7.7 g/dL (6.4-8.2)
[2024-01-01 23:15] LABS: Influenza A, PCR NEGATIVE (NEGATIVE); Influenza B, PCR NEGATIVE (NEGATIVE); Resp Syncytial Virus, PCR NEGATIVE (NEGATIVE); SARS-Cov-2 (COVID-19) PCR, MMC NEGATIVE (NEGATIVE)
[2024-01-01] MEDS ORDERED: Mag Hydrox/AL Hydrox/Simeth 30 ML UDC PO ONE (23:20)
[2024-01-01] MEDS ORDERED: Lidocaine 2% Viscous Soln 15 ML UDC PO ONE (23:20)
[2024-01-01] MEDS ORDERED: Benzonatate 100 MG Cap PO ONE (23:20)
[2024-01-01] MEDS ORDERED: Atropine/Scopalam/Hyoscam/PB 5 ML UDC PO ONE (23:20)
[2024-01-02 00:15] VITALS: BP 125/63
[2024-01-02] MEDS ORDERED: SUCR1 PO (00:24)
[2024-01-02] MEDS ORDERED: BENZ100A PO (00:24)
== END 2024-01-02 00:31 | disposition home or self-care (01) ==
LOC: ER 22:01
PROVIDERS: Physician Assistant
DX: B34.9 Viral infection, unspecified (principal); J44.9 Chronic obstructive pulmonary disease, unspecified; I10 Essential (primary) hypertension; K21.9 Gastro-esophageal reflux disease without esophagitis; Z87.891 Personal history of nicotine dependence; Z99.81 Dependence on supplemental oxygen; Z85.118 Personal history of other malignant neoplasm of bronchus and lung; Z88.2 Allergy status to sulfonamides; Z91.018 Allergy to other foods; Z91.048 Other nonmedicinal substance allergy status; Z79.899 Other long term (current) drug therapy
CPT/HCPCS: 0241U; 71046; 80053; 84484; 85025; 99284-25; A9270

== ENCOUNTER 2024-04-25 13:15 | Emergency (ER) | payer MEDICARE ==
[~2024-04-25] VITALS: Ht 160 cm; Wt 74.8 kg
[~2024-04-25 13:15] MED LIST changes: +BENZ100A PO; +SUCR1 PO
[2024-04-25 13:37] VITALS: BP 185/77
[2024-04-25] MEDS ORDERED: Oxymetazoline 0.05% Nasal Relief Spray 15mL BTL ONE (14:20)
== END 2024-04-25 15:15 | disposition home or self-care (01) ==
LOC: ER 13:15
DX: R04.0 Epistaxis (principal); J44.9 Chronic obstructive pulmonary disease, unspecified; K21.9 Gastro-esophageal reflux disease without esophagitis; I10 Essential (primary) hypertension; Z87.891 Personal history of nicotine dependence; Z79.899 Other long term (current) drug therapy; Z79.51 Long term (current) use of inhaled steroids; Z88.2 Allergy status to sulfonamides; Z91.018 Allergy to other foods; Z88.8 Allergy status to other drugs, medicaments and biological substances
CPT/HCPCS: 30901; 99283-25; A9270

== ENCOUNTER 2024-09-11 15:34 | Emergency (ER) | payer MEDICARE ==
[~2024-09-11] VITALS: Ht 162.6 cm; Wt 73.5 kg
[2024-09-11 16:43] LABS: BASOPHILS ABSOLUTE AUTO 0.04 K/mm3 (0.00-0.23); BASOPHILS PERCENT AUTO 0 % (0-2); EOSINOPHILS ABSOLUTE AUTO 0.06 K/mm3 (0.00-0.68); EOSINOPHILS PERCENT AUTO 1 % (0-6); Hematocrit 40.5 % (33.0-51.0); Hemoglobin 13.5 g/dL (11.5-16.0); IMMATURE GRAN ABSOLUTE AUTO 0.05 K/mm3 (0.00-0.10); IMMATURE GRAN PERCENT AUTO 0 % (0-1); LYMPHOCYTES ABSOLUTE AUTO 0.88 K/mm3 (0.84-5.20); LYMPHOCYTES PERCENT AUTO 7 % (21-46); MONOCYTES ABSOLUTE AUTO 0.74 K/mm3 (0.16-1.47); MONOCYTES PERCENT AUTO 6 % (4-13); Mean Corpuscular HGB 29.6 pg (26.0-34.0); Mean Corpuscular HGB Conc 33.3 g/dL (31.5-36.5); Mean Corpuscular Volume 89 fL (80-100); Mean Platelet Volume 9.6 fL (9.1-12.4); NEUTROPHILS ABSOLUTE AUTO 10.49 K/mm3 (1.96-9.15); NEUTROPHILS PERCENT AUTO 86 % (41-73); Platelet Count 259 K/mm3 (150-400); RDW Coefficient Variation 12.2 % (11.7-14.2); RDW Standard Deviation 39.8 fL (35.1-46.3); Red Blood Cell Count 4.56 M/mm3 (3.80-5.20); White Blood Cell Count 12.26 K/mm3 (4.00-11.30)
[2024-09-11 17:06] LABS: Albumin, Blood 3.1 g/dL (3.4-5.0); Albumin/Globulin Ratio 0.8 (0.8-1.8); Bilirubin, Total 0.3 mg/dL (0.1-1.0); Bun/Creatinine Ratio 10.6 (12.0-20.0); Calcium, Blood 8.6 mg/dL (8.5-10.1); Creatinine, Blood 0.75 mg/dL (0.40-1.00); Potassium, Blood 3.9 mmol/L (3.5-5.5); Total Protein, Blood 7.1 g/dL (6.4-8.2)
[2024-09-11] MEDS ORDERED: FLOVENT (18:50)
[2024-09-11] MEDS ORDERED: CEPH250A (18:53)
[2024-09-11] MEDS ORDERED: IPRAT-ALBUT 0.5-3 ML (18:53)
[2024-09-11] MEDS ORDERED: DGL (18:55)
[2024-09-11] MEDS ORDERED: TUSSIONEX (18:58)
[2024-09-11] MEDS ORDERED: AMOX-CLAV 875-1 EAC5 PO (19:04)
[2024-09-11] MEDS ORDERED: Bentyl20 MG (19:04)
[2024-09-11] MEDS ORDERED: Morphine Sulfate 4 MG/1 ML Injection IV ONE ×2 (19:15→20:15)
[2024-09-11] MEDS ORDERED: OXYC5 PO (20:18)
[2024-09-11 20:27] VITALS: BP 161/81
== END 2024-09-11 20:43 | disposition home or self-care (01) ==
LOC: ER 15:34
PROVIDERS: Emergency Medicine
DX: K57.32 Diverticulitis of large intestine without perforation or abscess without bleeding (principal); J44.9 Chronic obstructive pulmonary disease, unspecified; I10 Essential (primary) hypertension; Z87.891 Personal history of nicotine dependence
CPT/HCPCS: 74177; 80053; 83690; 85025; 96374-59; 96376; 99284-25; J2270; Q9967

== ENCOUNTER 2024-09-26 15:50 | Inpatient (IN) | payer MEDICARE ==
[~2024-09-26] VITALS: Ht 160 cm; Wt 72.0 kg
[~2024-09-26 15:50] MED LIST changes: +AMOX-CLAV 875-1 EAC5 PO; +ARNUITY ELLIP100 MCG INH; +Bentyl20 MG; +CEPH250A; +DGL; +FLOVENT; -FLOVENT HFA12 GM INH; +IPRAT-ALBUT 0.5-3 ML; +OXYC5 PO; +TUSSIONEX
[2024-09-26 17:10] LABS: BASOPHILS ABSOLUTE AUTO 0.07 K/mm3 (0.00-0.23); BASOPHILS PERCENT AUTO 1 % (0-2); EOSINOPHILS ABSOLUTE AUTO 0.13 K/mm3 (0.00-0.68); EOSINOPHILS PERCENT AUTO 1 % (0-6); Hematocrit 43.2 % (33.0-51.0); Hemoglobin 14.2 g/dL (11.5-16.0); IMMATURE GRAN ABSOLUTE AUTO 0.04 K/mm3 (0.00-0.10); IMMATURE GRAN PERCENT AUTO 0 % (0-1); LYMPHOCYTES PERCENT AUTO 14 % (21-46); MONOCYTES ABSOLUTE AUTO 0.66 K/mm3 (0.16-1.47); MONOCYTES PERCENT AUTO 6 % (4-13); Mean Corpuscular HGB 28.6 pg (26.0-34.0); Mean Corpuscular HGB Conc 32.9 g/dL (31.5-36.5); Mean Corpuscular Volume 87 fL (80-100); Mean Platelet Volume 9.9 fL (9.1-12.4); NEUTROPHILS ABSOLUTE AUTO 8.21 K/mm3 (1.96-9.15); NEUTROPHILS PERCENT AUTO 77 % (41-73); Platelet Count 364 K/mm3 (150-400); RDW Coefficient Variation 12.4 % (11.7-14.2); RDW Standard Deviation 39.6 fL (35.1-46.3); Red Blood Cell Count 4.96 M/mm3 (3.80-5.20); White Blood Cell Count 10.61 K/mm3 (4.00-11.30)
[2024-09-26 17:35] LABS: Albumin, Blood 3.6 g/dL (3.4-5.0); Albumin/Globulin Ratio 0.8 (0.8-1.8); Bilirubin, Total 0.4 mg/dL (0.1-1.0); Bun/Creatinine Ratio 15.1 (12.0-20.0); Calcium, Blood 9.3 mg/dL (8.5-10.1); Creatinine, Blood 0.73 mg/dL (0.40-1.00); Globulin, Blood 4.3 g/dL (2.2-4.0); Potassium, Blood 3.7 mmol/L (3.5-5.5); Total Protein, Blood 7.9 g/dL (6.4-8.2)
[2024-09-26] MEDS ORDERED: Ondansetron HCl 2 MG / ML 2ML Vial IV PRN (19:45)
[2024-09-26] MEDS ORDERED: FentaNYL Citrate 50 MCG/ML 2 ML Injection IV ONE (19:45)
[2024-09-26] MEDS ORDERED: Albuterol 2.5 MG/3 ML VIAL INH PRN (19:45)
[2024-09-26] MEDS ORDERED: Ipratropium/Albuterol SulF 2.5-0.5MG/3 ML Amp INH SCH (19:50)
[2024-09-26] MEDS ORDERED: OxyCODONE 5 mg/Acetamin 325 mg TABLET PO PRN (19:50)
[2024-09-26] MEDS ORDERED: NS 1,000 ML IV SCH (19:50)
[2024-09-26] MEDS ORDERED: Lactobacil 2-S.Thermo-Bifido 1 1 Cap PO SCH (21:00)
[2024-09-26] MEDS ORDERED: FLU VACC TS2024-25(6MOS UP)/PF 45 MCG/0.5 ML SYRINGE IM ONE (21:05)
[2024-09-26] MEDS ORDERED: Piperacillin/Tazobactam Sod 3.375 GM in NS 100 ML IV ONE (21:10)
[2024-09-26 22:46] VITALS: BP 157/68
[2024-09-26] MEDS ORDERED: Carvedilol12.5 MG PO (22:52)
[2024-09-26] MEDS ORDERED: MIRT15 PO (22:53)
[2024-09-26] MEDS ORDERED: CELE100 PO (22:54)
[2024-09-26] MEDS ORDERED: MONT10T PO (22:55)
[2024-09-27 04:27] VITALS: BP 149/66
--- NOTE | 2024-09-27 04:34 | NUR ---
SHIFT SUMMARY ADMITTED AT 2144, VERY PLEASANT PERSON. MEDICATED FOR ABD. PAIN SHE REQUESTED HER IV SITE BE CHANGED. LIZBETH ABLE TO DO THAT. GIVEN LARGE SIP OF WATER WITH PO MEDS. PATIENT REMAINS IN CONTACT ISOLATION FOR HISTORY OF C DIF. O2/2L/NC IS HER BASELINE FROM HER TREATMENT FOR LUNG CANCER. ALSO DNR STATUS. NO RECTAL BLEEDING NOTED OF THIS ENTRY. NPO FOR POSSIBLE AM PROCEDURES.
[2024-09-27] MEDS ORDERED: Omeprazole 20 MG CapCR PO SCH (06:00)
[2024-09-27] MEDS ORDERED: Piperacillin/Tazobactam Sod 3.375 GM in NS 100 ML IV SCH (06:00)
[2024-09-27 06:29] LABS: BASOPHILS ABSOLUTE AUTO 0.04 K/mm3 (0.00-0.23); BASOPHILS PERCENT AUTO 0 % (0-2); EOSINOPHILS ABSOLUTE AUTO 0.18 K/mm3 (0.00-0.68); EOSINOPHILS PERCENT AUTO 2 % (0-6); Hematocrit 33.8 % (33.0-51.0); Hemoglobin 11.1 g/dL (11.5-16.0); IMMATURE GRAN ABSOLUTE AUTO 0.02 K/mm3 (0.00-0.10); IMMATURE GRAN PERCENT AUTO 0 % (0-1); LYMPHOCYTES ABSOLUTE AUTO 1.57 K/mm3 (0.84-5.20); LYMPHOCYTES PERCENT AUTO 16 % (21-46); MONOCYTES ABSOLUTE AUTO 0.85 K/mm3 (0.16-1.47); MONOCYTES PERCENT AUTO 9 % (4-13); Mean Corpuscular HGB 28.9 pg (26.0-34.0); Mean Corpuscular HGB Conc 32.8 g/dL (31.5-36.5); Mean Corpuscular Volume 88 fL (80-100); Mean Platelet Volume 9.8 fL (9.1-12.4); NEUTROPHILS ABSOLUTE AUTO 6.98 K/mm3 (1.96-9.15); NEUTROPHILS PERCENT AUTO 72 % (41-73); Platelet Count 264 K/mm3 (150-400); RDW Coefficient Variation 12.4 % (11.7-14.2); RDW Standard Deviation 39.6 fL (35.1-46.3); Red Blood Cell Count 3.84 M/mm3 (3.80-5.20); White Blood Cell Count 9.64 K/mm3 (4.00-11.30)
[2024-09-27 07:01] LABS: Magnesium, Blood 1.9 mg/dL (1.6-2.4)
[2024-09-27 07:10] LABS: Albumin, Blood 2.7 g/dL (3.4-5.0); Albumin/Globulin Ratio 0.8 (0.8-1.8); Bilirubin, Total 0.3 mg/dL (0.1-1.0); Bun/Creatinine Ratio 15.8 (12.0-20.0); Calcium, Blood 8.4 mg/dL (8.5-10.1); Creatinine, Blood 0.7 mg/dL (0.40-1.00); Globulin, Blood 3.2 g/dL (2.2-4.0); Potassium, Blood 3.6 mmol/L (3.5-5.5); Total Protein, Blood 5.9 g/dL (6.4-8.2)
[2024-09-27] MEDS ORDERED: Carvedilol 6.25 MG Tab PO SCH (08:00)
[2024-09-27 08:01] VITALS: BP 120/93
[2024-09-27] MEDS ORDERED: Enoxaparin 40 MG/0.4 ML SYR SC SCH (09:00)
[2024-09-27] MEDS ORDERED: Polyethylene Glycol 3350 17 gm PO SCH (12:40)
[2024-09-27] MEDS ORDERED: Sennosides 8.6 MG Tab PO PRN (12:45)
[2024-09-27] MEDS ORDERED: Bisacodyl 5 MG TabEC PO PRN (12:45)
[2024-09-27] MEDS ORDERED: CENTRUM SILVER1 EAC2 PO (16:25)
[2024-09-27] MEDS ORDERED: CEPH250A PO (16:25)
[2024-09-27] MEDS ORDERED: ANORO ELLIPTA1 EACH INH (16:27)
[2024-09-27 16:41] VITALS: BP 147/62
[2024-09-27] MEDS ORDERED: HYDROmorphone HCl/Pf 1MG SYR IV PRN (17:40)
[2024-09-27] MEDS ORDERED: Ondansetron HCl 2 MG / ML 2ML Vial IV PRN (17:40)
--- NOTE | 2024-09-27 18:20 | NUR ---
SUMMARY- PT A/O X4, INDEPENDANT TO THE BATHROOM. STARTED ON CLEAR LIQ DIET THIS AM, TOLERATED WELL. ADVANCED TO FULL AND WANTED TO TRY A JALLOH BURRITOE AROUND 1500. THIS DIDN'T SETTLE WELL, PT HAVING NAUSEA AND PAIN IN LOW ABD, SAME TYPE WHAT BROUGHT HER IN. DEEP AND SHOOTING PAINS CONTINOUS. CALLED DR DE JESUS AND NOTIFIED, NEW ORDER FOR DILAUDID IV AND INCREASED ZOFRAN FREQ. PT BACK TO CLEARS FOR NOW, CONT MAINT FLUIDS SHE IS NOT TAKING IN LG AMOUNTS, BUT SIPS. HAD 2 FORMED BROWN STOOLS TODAY. COMPLAINED OF POSSIBLE FEELING CONSTIPATED, BOWEL CARE INITIATED BUT PT THAN HAD SOFTER BM AND DECLINED MIRILAX. SAMPLE SENT TO LAB, STILL NO RESULTS FOR C DIFF R/O/- CALLED LAB TWICE, WILL WORK TO RESOLVE. WILL REPORT TO JORDYN RN
[2024-09-27 19:37] LABS: C DIFFICILE DNA NEGATIVE (Negative)
[2024-09-27 19:42] VITALS: BP 134/58
[2024-09-28 05:06] VITALS: BP 184/74
--- NOTE | 2024-09-28 05:17 | NUR ---
SHIFT SUMMARY PT ALERT ORIENTED CALLS APPROPRIATELY SHE C/O ABD PAIN MEDICATED WITH DILAUDID WITH GOOD PAIN RELIEF. SHE STATED THAT SHE ATE A BURRITO YESTERDAY AND ITS CAUSED HER NAUSEA AND MORE PAIN. SHE WILL GET A FULL LIQUID DIET THIS AM. REMAINS ON 2L VIA NC WHICH IS THE SAME THAT SHE USES AT HOME. HER BP AT 0500 WAS HIGH AT 184/74 R/T HER BEING IN PAIN. WWILL MEDICATE FOR PAIN AND RECHECK. REMAINS ON ZOSYN Q6HR. REMAINS ON NS AT 100. SHES IN BED AT THIS TIME WITH CALL LIGHT IN REACH
[2024-09-28 07:25] VITALS: BP 133/54
[2024-09-28] MEDS ORDERED: Docusate Sodium 100 MG Cap PO PRN (13:55)
[2024-09-28] MEDS ORDERED: Prochlorperazine Edisylate 10 mg Vial IV PRN (13:55)
[2024-09-28 15:10] VITALS: BP 172/77
[2024-09-28] MEDS ORDERED: Labetalol HCL 5 MG/ML 4ML Injection (Single Dose) IV PRN (15:25)
[2024-09-28 16:48] VITALS: BP 162/59
[2024-09-28 17:34] VITALS: BP 154/61
--- NOTE | 2024-09-28 18:08 | NUR ---
SHIFT SUMMARY PATIENT A/OX4, INDEPENDENT IN ROOM. PLEASANT AND COOPERATIVE WITH CARE. PATIENT WITH MINIMAL ORAL INTAKE TODAY, REFUSEDALL MEALS AND ATE APPLESAUCE EARLY THIS AM. PATIENT COMPLAINING OF ABDOMINAL PAIN, BUT DENIES NEED FOR PAIN MEDICATION. PATIENT ALSO COMPLAINING OF NAUSEA, PRN ZOFRAN ORDERED AND NOT EFFECTIVE. MD NOTIFIED AND COMPAZINE ORDERED AND ADMINISTERED, WHICH WAS EFFECTIVE. PATIENT STATES SHE FEELS CONSTIPATED AND HAD 1 HARD BOWEL MOVEMENT THIS AM, NEW ORDER FOR PRN COLACE GIVEN PER JAN. SBP ELEVATED IN 170s THIS EVENING, MD NOTIFIED AND NEW ORDER FOR TELEMETRY AND PRN LABETALOL ADMINISTERED PER JAN. TELEMETRY IN PLACE SHOWING NORMAL SINUS WITH RATE IN 60s. NO OTHER CONCERNS AT THIS TIME.
[2024-09-28 19:24] VITALS: BP 160/68
[2024-09-29] MEDS ORDERED: Mometasone/Formoterol MDI 100/5 mcg 13 GM INH SCH (00:45)
--- NOTE | 2024-09-29 04:26 | NUR ---
SHIFT SUMMARY PT ALERT ORIENTED ABLE TO VERBALIZE NEEDS CALLS APPROPRIATELY. NO C/O PAIN OR N/V THIS SHIFT. SHE WAS ABLE TO EAT A SANDWICH WITH NO PROBLEMS. REMAINS ON ZOSYN Q6HR. REMAINS ON NS AT 100. REMAINS ON TELEMETRY AT NSR AT A RATE OF 73. GETS UP IN ROOM AD LUCI. VSS ON 2L VIA NC SATTING AT 99%. BP REMAINS SLIGHTLY ELEVATED AT 160. SHE HAD A LG BM LAST NIGHT. RESTING IN BED AT THIS TIME WITH CALL LIGHT IN REACH
[2024-09-29 05:00] VITALS: BP 145/85
[2024-09-29 05:28] LABS: BASOPHILS ABSOLUTE AUTO 0.04 K/mm3 (0.00-0.23); BASOPHILS PERCENT AUTO 1 % (0-2); EOSINOPHILS ABSOLUTE AUTO 0.24 K/mm3 (0.00-0.68); EOSINOPHILS PERCENT AUTO 4 % (0-6); Hematocrit 35.9 % (33.0-51.0); IMMATURE GRAN ABSOLUTE AUTO 0.01 K/mm3 (0.00-0.10); IMMATURE GRAN PERCENT AUTO 0 % (0-1); LYMPHOCYTES ABSOLUTE AUTO 1.23 K/mm3 (0.84-5.20); LYMPHOCYTES PERCENT AUTO 19 % (21-46); MONOCYTES ABSOLUTE AUTO 0.67 K/mm3 (0.16-1.47); MONOCYTES PERCENT AUTO 10 % (4-13); Mean Corpuscular HGB Conc 33.4 g/dL (31.5-36.5); Mean Corpuscular Volume 87 fL (80-100); Mean Platelet Volume 9.5 fL (9.1-12.4); NEUTROPHILS ABSOLUTE AUTO 4.35 K/mm3 (1.96-9.15); NEUTROPHILS PERCENT AUTO 67 % (41-73); Platelet Count 249 K/mm3 (150-400); RDW Coefficient Variation 12.2 % (11.7-14.2); Red Blood Cell Count 4.14 M/mm3 (3.80-5.20); White Blood Cell Count 6.54 K/mm3 (4.00-11.30)
[2024-09-29 05:52] LABS: Bun/Creatinine Ratio 10.2 (12.0-20.0); Calcium, Blood 8.5 mg/dL (8.5-10.1); Creatinine, Blood 0.78 mg/dL (0.40-1.00); Potassium, Blood 3.7 mmol/L (3.5-5.5)
[2024-09-29 07:36] VITALS: BP 184/78
[2024-09-29 07:37] VITALS: BP 183/72
[2024-09-29 09:30] VITALS: BP 126/97
[2024-09-29 16:13] VITALS: BP 164/72
--- NOTE | 2024-09-29 19:15 | NUR ---
SHIFT SUMMARY PATIENT A/OX4, ABLE TO MAKE NEEDS KNOWN. INDEPENDENT IN ROOM. CHRONIC SUPPLEMENTAL OXYGEN USE AT 2LPM, SPO2 WNL. TELEMETRY IN PLACE, NO EVENTS NOTED THIS SHIFT. PATIENT'S BLOOD PRESSURE REAMINS ELEVATED AND IV LABETALOL ADMINISTERD X2 THIS SHIFT, EFFECTIVE IN MANAGING BLOOD PRESSURE. PATIENT CONTINUES WITH NAUSEA, IV COMPAZINE AND ZOFRAN ADMINISTERED PER MAR THROUGHOUT THE SHIFT. PATIENT INCREASED TO REGULAR DIET THIS SHIFT, CONTINUES WITH MINIMAL INTAKE AND HAS NOT HAD REGULAR TEXTURED FOOD SINCE ORDER HAS BEEN PLACED. PATIENT DRINKING PROTEIN DRINKS FROM HOME, PATIENT'S SPOUSE, ERAN, BRINGS TO PATIENT. DENIES PAIN THIS SHIFT, NO PRN PAIN MEDICATION ADMINISTERED, HOWEVER DOES COMPLAIN OF ABDOMINAL TENDERNESS AND SLIGHT DISCOMFORT. IV ABX INFUSED PER MAR. NO OTHER CONCERNS AT THIS TIME.
[2024-09-29 20:20] VITALS: BP 159/99
[2024-09-29] MEDS ORDERED: Mirtazapine 15 MG Tab PO SCH (21:00)
[2024-09-29] MEDS ORDERED: Multivitamins/Minerals 1 Tab PO SCH (21:00)
[2024-09-29] MEDS ORDERED: Montelukast Sodium 10 MG Tab PO SCH (21:00)
[2024-09-29] MEDS ORDERED: Melatonin 5 MG Tablet PO SCH (21:00)
[2024-09-30 03:57] VITALS: BP 152/91
--- NOTE | 2024-09-30 04:20 | NUR ---
NOC SHIFT SUMMARY AT BEDTIME, PT SPENT A FEW HOURS ON THE TOILET WITH ABDOMINAL CRAMPING AND SOME DIARRHEA. SOON SHE WOULD GET BACK IN BED, SHE WOULD GET RIGHT BACK UP AGAIN AND FEEL LIKE SHE HAD TO SIT ON THE TOILET AGAIN. WHEN I GAVE HER A PERCOCET, SHE VOMITTED IT BACK UP, DESPITE THE FACT THAT SHE HAD ZOFRAN ON BOARD ALREADY. SHE IS NOT SURE IF SHE IS DOING WORSE TONIGHT BECAUSE OF SOMETHING SHE ATE (HER DIET HAD BEEN ADVANCED TODAY TO REGULAR). THE ONLY THING THAT SEEMED TO HELP STOP HER CRAMPING AND ASSOCIATED DIARRHEA WAS IV DILAUDID. SHE HAS VOMITED 3 TIMES THIS SHIFT (2 OF THEM VERY SMALL, ONE WAS VERY LARGE), EVEN WITH ZOFRAN AND COMPAZINE ON BOARD. THE IV DILAUDID WOULD ALLOW HER A COUPLE HOURS OF SLEEP WITH EACH DOSE. HOWEVER, AT THE TIME OF THIS NOTE (04:25) PT SAYS THAT WHATEVER WAS CAUSING THE PAINFUL CRAMPING SEEMS TO HAVE MAYBE PASSED AND SHE IS FEELING A LOT MORE COMFORTABLE AND HAS NOW STOPPED THROWING UP.
[2024-09-30 07:27] VITALS: BP 173/81
[2024-09-30] MEDS ORDERED: Citalopram Hydrobromide 20 MG Tab PO SCH (09:00)
[2024-09-30 09:21] LABS: BASOPHILS ABSOLUTE AUTO 0.05 K/mm3 (0.00-0.23); BASOPHILS PERCENT AUTO 1 % (0-2); EOSINOPHILS ABSOLUTE AUTO 0.27 K/mm3 (0.00-0.68); EOSINOPHILS PERCENT AUTO 3 % (0-6); Hematocrit 37.4 % (33.0-51.0); Hemoglobin 12.6 g/dL (11.5-16.0); IMMATURE GRAN ABSOLUTE AUTO 0.03 K/mm3 (0.00-0.10); IMMATURE GRAN PERCENT AUTO 0 % (0-1); LYMPHOCYTES ABSOLUTE AUTO 1.07 K/mm3 (0.84-5.20); LYMPHOCYTES PERCENT AUTO 13 % (21-46); MONOCYTES ABSOLUTE AUTO 0.62 K/mm3 (0.16-1.47); MONOCYTES PERCENT AUTO 8 % (4-13); Mean Corpuscular HGB 28.9 pg (26.0-34.0); Mean Corpuscular HGB Conc 33.7 g/dL (31.5-36.5); Mean Corpuscular Volume 86 fL (80-100); Mean Platelet Volume 9.5 fL (9.1-12.4); NEUTROPHILS ABSOLUTE AUTO 6.28 K/mm3 (1.96-9.15); NEUTROPHILS PERCENT AUTO 75 % (41-73); Platelet Count 275 K/mm3 (150-400); RDW Coefficient Variation 12.2 % (11.7-14.2); RDW Standard Deviation 38.2 fL (35.1-46.3); Red Blood Cell Count 4.36 M/mm3 (3.80-5.20); White Blood Cell Count 8.32 K/mm3 (4.00-11.30)
[2024-09-30 09:35] LABS: Bun/Creatinine Ratio 7.3 (12.0-20.0); Calcium, Blood 8.5 mg/dL (8.5-10.1); Creatinine, Blood 0.69 mg/dL (0.40-1.00); Potassium, Blood 3.3 mmol/L (3.5-5.5)
[2024-09-30] MEDS ORDERED: Potassium Chloride 20 MEQ TabCR PO ONE (12:00)
[2024-09-30] MEDS ORDERED: Banana Flakes/Tos 1 EA Powder Pack PO SCH (14:00)
[2024-09-30 16:28] VITALS: BP 175/73
--- NOTE | 2024-09-30 18:49 | NUR ---
PT A&OX4, PLEASANT AND COOPERATIVE, HTN, AND SR ON TELE. PT COMPLAINED OF REPEATED EPISODES OF DIARRHEA AND ABDOMINAL CRAMPING, NO N/V THIS SHIFT. PRN DILAUDED GIVEN X3 WITH GOOD EFFECT. ORDERED BANANA FLAKES TO HELP BULK UP THE STOOL, BUT PT REFUSED D/T NOT LIKING BANANAS AND PREVIOUS N/V WHEN SHE TRIED EATING ONE. DR. BEAN CONSULTED. CALL LIGHT IN REACH, CALLS APPROPRIATELY
[2024-09-30 19:53] VITALS: BP 161/63
[2024-09-30 20:30] VITALS: BP 155/91
[2024-10-01 03:11] VITALS: BP 193/74
[2024-10-01 03:40] VITALS: BP 152/88
--- NOTE | 2024-10-01 04:09 | NUR ---
FRONT LOAD TRASH TRUCK DRIVER SUMMARY PT IS NO LONGER VOMITING OR REQUIRING ANTI-EMETICS. SHE IS STILL EXPERIENCING INTERMITTENT SEVERE LLQ ABDOMINAL CRAMPING AND DIARRHEA AND ASKS FOR PAIN MEDICINE. SHE HAD SEVERAL EPISODES OF THE PAIN/CRAMPING/DIARRHEA OVERNIGHT AND THINKS IT MIGHT BE SOMETHING SHE ATE DURING DINNER AND REPORTS FRUSTRATION THAT THESE EPISODES KEEP REOCCURING.
[2024-10-01 05:18] LABS: BASOPHILS ABSOLUTE AUTO 0.04 K/mm3 (0.00-0.23); BASOPHILS PERCENT AUTO 0 % (0-2); EOSINOPHILS ABSOLUTE AUTO 0.29 K/mm3 (0.00-0.68); EOSINOPHILS PERCENT AUTO 3 % (0-6); Hematocrit 37.8 % (33.0-51.0); Hemoglobin 12.4 g/dL (11.5-16.0); IMMATURE GRAN ABSOLUTE AUTO 0.04 K/mm3 (0.00-0.10); IMMATURE GRAN PERCENT AUTO 0 % (0-1); LYMPHOCYTES ABSOLUTE AUTO 1.26 K/mm3 (0.84-5.20); LYMPHOCYTES PERCENT AUTO 14 % (21-46); MONOCYTES ABSOLUTE AUTO 0.96 K/mm3 (0.16-1.47); MONOCYTES PERCENT AUTO 10 % (4-13); Mean Corpuscular HGB 28.3 pg (26.0-34.0); Mean Corpuscular HGB Conc 32.8 g/dL (31.5-36.5); Mean Corpuscular Volume 86 fL (80-100); Mean Platelet Volume 9.9 fL (9.1-12.4); NEUTROPHILS ABSOLUTE AUTO 6.67 K/mm3 (1.96-9.15); NEUTROPHILS PERCENT AUTO 72 % (41-73); Platelet Count 271 K/mm3 (150-400); RDW Coefficient Variation 12.6 % (11.7-14.2); RDW Standard Deviation 39.4 fL (35.1-46.3); Red Blood Cell Count 4.38 M/mm3 (3.80-5.20); White Blood Cell Count 9.26 K/mm3 (4.00-11.30)
[2024-10-01 05:47] LABS: Albumin, Blood 2.7 g/dL (3.4-5.0); Anion Gap 9 mmol/L (3-11); Blood Urea Nitrogen 7 mg/dL (8-24); Bun/Creatinine Ratio 8.6 (12.0-20.0); CO2, Blood 26 mmol/L (21-32); Calcium, Blood 8.8 mg/dL (8.5-10.1); Chloride, Blood 110 mmol/L (98-108); Creatinine, Blood 0.82 mg/dL (0.40-1.00); Glomerular Filtration Rate 75 (60-); Glucose, Blood 124 mg/dL (70-99); Phosphorus, Blood 2.4 mg/dL (2.5-4.9); Potassium, Blood 3.3 mmol/L (3.5-5.5); Sodium, Blood 142 mmol/L (136-145)
[2024-10-01 07:25] VITALS: BP 176/51
[2024-10-01] MEDS ORDERED: Potassium Phosphate Dibasic 30 MM in Dextrose 5% 500 ML IV STA (08:54)
[2024-10-01] MEDS ORDERED: ALBU90OI INH (11:43)
[2024-10-01] MEDS ORDERED: VISBIOME 112.51 EACH PO (11:45)
[2024-10-01] MEDS ORDERED: AMOCLA875 PO (11:46)
[2024-10-01] MEDS ORDERED: K-Phos Origina500 MG PO (11:46)
--- NOTE | 2024-10-01 13:14 | NUR ---
PATIENT TO HAVE HALF THE BAG OF IV POTASSIUM PRIOR TO DISCHARGE HOME
[2024-10-01 15:10] VITALS: BP 150/80
--- NOTE | 2024-10-01 17:28 | NUR ---
DISCHARGED HOME, INSTRUCTIONS GIVEN TO PATIENT AND , BOTH STATED UNDERSTANDING OF INSTRUCTIONS, FOLLOW UP NEEDS AND MEDICATIONS. BOTH DENIED FURTHER QUESTIONS
--- NOTE | 2024-10-01 19:28 | NUR ---
I was asked by patient to verify a medication and why it was given, so that is why this sheet writer was in this patients chart.
== END 2024-10-01 17:04 | disposition home or self-care (01) | DRG 392 ==
LOC: ER 15:50 → MEDS 19:43 → ERHOLD 19:43 → MEDS 22:39
PROVIDERS: Internal Medicine; Nurse Practitioner Acute Care; Physician Assistant; ADMIT Student in an Organized Health Care Education/Training Program
DX: K57.32 Diverticulitis of large intestine without perforation or abscess without bleeding (principal); J96.11 Chronic respiratory failure with hypoxia; E87.6 Hypokalemia; E83.39 Other disorders of phosphorus metabolism; J44.9 Chronic obstructive pulmonary disease, unspecified; I10 Essential (primary) hypertension; Z66 Do not resuscitate; F32.A Depression, unspecified; G47.00 Insomnia, unspecified; Z86.711 Personal history of pulmonary embolism; Z85.118 Personal history of other malignant neoplasm of bronchus and lung; Z90.2 Acquired absence of lung [part of]; Z86.19 Personal history of other infectious and parasitic diseases; Z99.81 Dependence on supplemental oxygen; K21.9 Gastro-esophageal reflux disease without esophagitis; Z79.899 Other long term (current) drug therapy; Z91.048 Other nonmedicinal substance allergy status; Z88.2 Allergy status to sulfonamides; Z91.018 Allergy to other foods; Z79.2 Long term (current) use of antibiotics; Z79.891 Long term (current) use of opiate analgesic; Z90.89 Acquired absence of other organs; Z90.710 Acquired absence of both cervix and uterus; Z90.722 Acquired absence of ovaries, bilateral; Z90.79 Acquired absence of other genital organ(s); Z98.890 Other specified postprocedural states; Z87.891 Personal history of nicotine dependence
CPT/HCPCS: 36415; 74177; 80048; 80053; 80069; 83690; 83735; 85025; 87493; 94640; 94664; 94760; 94762; 99285-25; A9270; J0780; J1171; J1650; J2405; J2543; J3010; J7030; J7060; Q9967

== ENCOUNTER 2024-10-02 23:57 | Emergency (ER) | payer MEDICARE ==
[~2024-10-02] VITALS: Ht 160 cm; Wt 69.0 kg
[~2024-10-02 23:57] MED LIST changes: +ALBU90OI INH; +AMOCLA875 PO; +CELE100 PO; +CENTRUM SILVER1 EAC2 PO; +CEPH250A PO; +Carvedilol12.5 MG PO; +K-Phos Origina500 MG PO; +MIRT15 PO; +MONT10T PO
[2024-10-03 00:20] LABS: BASOPHILS ABSOLUTE AUTO 0.03 K/mm3 (0.00-0.23); BASOPHILS PERCENT AUTO 0 % (0-2); EOSINOPHILS ABSOLUTE AUTO 0.04 K/mm3 (0.00-0.68); EOSINOPHILS PERCENT AUTO 0 % (0-6); Hematocrit 37.7 % (33.0-51.0); Hemoglobin 12.7 g/dL (11.5-16.0); IMMATURE GRAN ABSOLUTE AUTO 0.04 K/mm3 (0.00-0.10); IMMATURE GRAN PERCENT AUTO 0 % (0-1); LYMPHOCYTES ABSOLUTE AUTO 0.91 K/mm3 (0.84-5.20); LYMPHOCYTES PERCENT AUTO 8 % (21-46); MONOCYTES ABSOLUTE AUTO 0.52 K/mm3 (0.16-1.47); MONOCYTES PERCENT AUTO 4 % (4-13); Mean Corpuscular HGB 28.7 pg (26.0-34.0); Mean Corpuscular HGB Conc 33.7 g/dL (31.5-36.5); Mean Corpuscular Volume 85 fL (80-100); Mean Platelet Volume 9.7 fL (9.1-12.4); NEUTROPHILS ABSOLUTE AUTO 10.19 K/mm3 (1.96-9.15); NEUTROPHILS PERCENT AUTO 87 % (41-73); Platelet Count 303 K/mm3 (150-400); RDW Coefficient Variation 12.6 % (11.7-14.2); RDW Standard Deviation 38.5 fL (35.1-46.3); Red Blood Cell Count 4.42 M/mm3 (3.80-5.20); White Blood Cell Count 11.73 K/mm3 (4.00-11.30)
[2024-10-03 00:39] LABS: Albumin, Blood 3.2 g/dL (3.4-5.0); Albumin/Globulin Ratio 0.8 (0.8-1.8); Bilirubin, Total 0.4 mg/dL (0.1-1.0); Bun/Creatinine Ratio 10.1 (12.0-20.0); Calcium, Blood 9.1 mg/dL (8.5-10.1); Creatinine, Blood 0.6 mg/dL (0.40-1.00); Globulin, Blood 3.8 g/dL (2.2-4.0); Potassium, Blood 3.3 mmol/L (3.5-5.5)
[2024-10-03] MEDS ORDERED: Mag Hydrox/AL Hydrox/Simeth 30 ML UDC PO ONE (00:55)
[2024-10-03] MEDS ORDERED: Droperidol 5 mg/2 ml Vial IV ONE (00:55)
[2024-10-03] MEDS ORDERED: Ondansetron HCl 2 MG / ML 2ML Vial IV ONE (02:10)
[2024-10-03 02:18] LABS: Source, Urine Clean Catch
[2024-10-03 02:20] LABS: Bilirubin, Urine Neg (Neg); Blood, Urine 3+ (Neg); Glucose Qualitative, Urine 2+ (Neg); Ketones, Urine 4+ (Neg); Leukocyte Esterase, Urine 1+ (Neg); Nitrite, Urine Neg (Neg); Protein, Urine 2+ (Neg); Specific Gravity, Urine 1.015 (1.003-1.022); Urobilinogen, Urine NORM (Normal)
[2024-10-03 02:22] LABS: Appearance, Urine Clear (Clear); Color, Urine Pale Yellow (P-Yellow)
[2024-10-03 02:26] LABS: Amorphous Light (0-Heavy); Bacteria Few /hpf; Squamous Epithelial Cells Not Seen /hpf (Few)
[2024-10-03] MEDS ORDERED: RX Prepack 2 Tabs Ondansetron ODT 4MG UD ONE (03:25)
[2024-10-03] MEDS ORDERED: ONDA4ODT MM (03:26)
[2024-10-03] MEDS ORDERED: PHENERGAN25 MG PR (03:26)
[2024-10-03] MEDS ORDERED: CIPR500 PO (03:26)
[2024-10-03 03:30] VITALS: BP 184/71
== END 2024-10-03 03:34 | disposition home or self-care (01) ==
LOC: ER 23:57
PROVIDERS: Emergency Medicine; Student in an Organized Health Care Education/Training Program
DX: N30.00 Acute cystitis without hematuria (principal); K21.9 Gastro-esophageal reflux disease without esophagitis; J44.9 Chronic obstructive pulmonary disease, unspecified; Z87.19 Personal history of other diseases of the digestive system; Z87.891 Personal history of nicotine dependence; Z79.899 Other long term (current) drug therapy; Z79.51 Long term (current) use of inhaled steroids; Z91.048 Other nonmedicinal substance allergy status; Z88.2 Allergy status to sulfonamides; Z91.018 Allergy to other foods
CPT/HCPCS: 71045; 80053; 81001; 84484; 85025; 87086; 93005; 93010; 96374; 96375; 99285; A9270; J1790; J2405

== ENCOUNTER 2024-10-04 04:43 | Emergency (ER) | payer MEDICARE ==
[~2024-10-04] VITALS: Ht 160 cm; Wt 59.9 kg
[~2024-10-04 04:43] MED LIST changes: +CIPR500 PO; +ONDA4ODT MM; +PHENERGAN25 MG PR
[2024-10-04] MEDS ORDERED: Metoclopramide HCl 5MG / ML 2ML Vial IV ONE (05:05)
[2024-10-04] MEDS ORDERED: NS 1,000 ML IV SCH ×2 (05:05→06:10)
[2024-10-04 05:33] LABS: BASOPHILS ABSOLUTE AUTO 0.05 K/mm3 (0.00-0.23); BASOPHILS PERCENT AUTO 0 % (0-2); EOSINOPHILS PERCENT AUTO 0 % (0-6); Hematocrit 52.3 % (33.0-51.0); Hemoglobin 17.4 g/dL (11.5-16.0); IMMATURE GRAN PERCENT AUTO 1 % (0-1); LYMPHOCYTES ABSOLUTE AUTO 1.86 K/mm3 (0.84-5.20); LYMPHOCYTES PERCENT AUTO 10 % (21-46); MONOCYTES PERCENT AUTO 6 % (4-13); Mean Corpuscular HGB Conc 33.3 g/dL (31.5-36.5); Mean Corpuscular Volume 84 fL (80-100); Mean Platelet Volume 9.9 fL (9.1-12.4); NEUTROPHILS ABSOLUTE AUTO 16.11 K/mm3 (1.96-9.15); NEUTROPHILS PERCENT AUTO 84 % (41-73); Platelet Count 520 K/mm3 (150-400); RDW Coefficient Variation 12.9 % (11.7-14.2); RDW Standard Deviation 38.9 fL (35.1-46.3); Red Blood Cell Count 6.21 M/mm3 (3.80-5.20); White Blood Cell Count 19.22 K/mm3 (4.00-11.30)
[2024-10-04 05:59] LABS: Magnesium, Blood 2.5 mg/dL (1.6-2.4); Thyroid Stimulating Hormone 1.52 uIU/mL (0.360-4.800)
[2024-10-04 06:00] LABS: Albumin, Blood 3.8 g/dL (3.4-5.0); Albumin/Globulin Ratio 0.8 (0.8-1.8); Bilirubin, Total 0.5 mg/dL (0.1-1.0); Bun/Creatinine Ratio 16.9 (12.0-20.0); Calcium, Blood 10.6 mg/dL (8.5-10.1); Creatinine, Blood 0.83 mg/dL (0.40-1.00); Globulin, Blood 4.9 g/dL (2.2-4.0); Phosphorus, Blood 2.5 mg/dL (2.5-4.9); Potassium, Blood 3.1 mmol/L (3.5-5.5); Total Protein, Blood 8.7 g/dL (6.4-8.2)
[2024-10-04] MEDS ORDERED: Potassium Chl 20MEQ/Water100ML 100 ML IV ONE (06:10)
[2024-10-04 06:22] LABS: Source, Urine Clean Catch
[2024-10-04 06:27] LABS: Appearance, Urine Hazy (Clear); Bilirubin, Urine Neg (Neg); Blood, Urine 2+ (Neg); Color, Urine Yellow (P-Yellow); Glucose Qualitative, Urine Neg (Neg); Ketones, Urine 3+ (Neg); Leukocyte Esterase, Urine 2+ (Neg); Nitrite, Urine Neg (Neg); Protein, Urine 4+ (Neg); Urobilinogen, Urine NORM (Normal)
[2024-10-04 06:39] LABS: Hyaline Casts 50-100 /lpf (0-2)
[2024-10-04 06:42] LABS: White Blood Cells, Urine 50-100 /hpf (0-5)
[2024-10-04 06:43] LABS: Amorphous Light (0-Heavy); Bacteria Many /hpf; Mucus Heavy (0-Heavy); Squamous Epithelial Cells Many /hpf (Few)
[2024-10-04 10:00] VITALS: BP 195/84
[2024-10-04] MEDS ORDERED: Promethazine HCl 25 MG Tab PO ONE (10:40)
[2024-10-04] MEDS ORDERED: Promethazine HCl 25 MG Supp PR ONE (11:00)
[2024-10-04 17:08] LABS: Adenovirus F 40/41 Not Detected (NOT DETECT); Astrovirus Not Detected (NOT DETECT); Campylobacter Sp Not Detected (NOT DETECT); Cryptosporidium Not Detected (NOT DETECT); Cyclospora Cayetanensis Not Detected (NOT DETECT); E. Coli O157 Not Detected (NOT DETECT); Entamoeba Histolytica Not Detected (NOT DETECT); Enteroaggregative E. coli-EAEC Not Detected (NOT DETECT); Enteropathogenic E. coli-EPEC Not Detected (NOT DETECT); Enterotoxigenic E. coli-ETEC Not Detected (NOT DETECT); Giardia Lamblia Not Detected (NOT DETECT); Norovirus GI/GII Not Detected (NOT DETECT); Plesiomonas Shigelloides Not Detected (NOT DETECT); Rotavirus A Not Detected (NOT DETECT); Salmonella Sp Not Detected (NOT DETECT); Sapovirus Not Detected (NOT DETECT); Shiga Toxin-prod E. coli-STEC Not Detected (NOT DETECT); Shigella/Enteroin E. coli-EIEC Not Detected (NOT DETECT); Vibrio Cholerae Not Detected (NOT DETECT); Vibrio Sp Not Detected (NOT DETECT); Yersinia Enterocolitica Not Detected (NOT DETECT)
== END 2024-10-04 11:11 | disposition home or self-care (01) ==
LOC: ER 04:43
PROVIDERS: Emergency Medicine
DX: R11.2 Nausea with vomiting, unspecified (principal); E86.0 Dehydration; E87.6 Hypokalemia; I10 Essential (primary) hypertension; J44.9 Chronic obstructive pulmonary disease, unspecified; K21.9 Gastro-esophageal reflux disease without esophagitis; Z86.711 Personal history of pulmonary embolism; Z85.118 Personal history of other malignant neoplasm of bronchus and lung; Z90.2 Acquired absence of lung [part of]; Z87.891 Personal history of nicotine dependence; Z99.81 Dependence on supplemental oxygen; Z91.048 Other nonmedicinal substance allergy status; Z91.018 Allergy to other foods; Z88.2 Allergy status to sulfonamides; Z79.1 Long term (current) use of non-steroidal anti-inflammatories (NSAID); Z79.899 Other long term (current) drug therapy
CPT/HCPCS: 80053; 81001; 83605; 83690; 83735; 84100; 84443; 85025; 87086; 87324; 87507; 93005; 93010; 96361; 96365; 96366; 96375; 99283-25; A9270; J2765; J3480; J7030

== ENCOUNTER → 2024-10-05 | Outpatient (CLI) | payer MEDICARE ==
[2024-10-05 11:46] LABS: BASOPHILS ABSOLUTE AUTO 0.04 K/mm3 (0.00-0.23); BASOPHILS PERCENT AUTO 0 % (0-2); EOSINOPHILS ABSOLUTE AUTO 0.02 K/mm3 (0.00-0.68); EOSINOPHILS PERCENT AUTO 0 % (0-6); Hematocrit 48.6 % (33.0-51.0); Hemoglobin 16.1 g/dL (11.5-16.0); IMMATURE GRAN PERCENT AUTO 1 % (0-1); LYMPHOCYTES ABSOLUTE AUTO 2.25 K/mm3 (0.84-5.20); LYMPHOCYTES PERCENT AUTO 14 % (21-46); MONOCYTES ABSOLUTE AUTO 1.52 K/mm3 (0.16-1.47); MONOCYTES PERCENT AUTO 9 % (4-13); Mean Corpuscular HGB 28.1 pg (26.0-34.0); Mean Corpuscular HGB Conc 33.1 g/dL (31.5-36.5); Mean Corpuscular Volume 85 fL (80-100); Mean Platelet Volume 10.3 fL (9.1-12.4); NEUTROPHILS ABSOLUTE AUTO 12.32 K/mm3 (1.96-9.15); NEUTROPHILS PERCENT AUTO 76 % (41-73); Platelet Count 474 K/mm3 (150-400); RDW Coefficient Variation 13.2 % (11.7-14.2); RDW Standard Deviation 39.8 fL (35.1-46.3); Red Blood Cell Count 5.72 M/mm3 (3.80-5.20); White Blood Cell Count 16.25 K/mm3 (4.00-11.30)
[2024-10-05 11:55] LABS: Albumin, Blood 3.5 g/dL (3.4-5.0); Albumin/Globulin Ratio 0.8 (0.8-1.8); Bilirubin, Total 0.4 mg/dL (0.1-1.0); Bun/Creatinine Ratio 14.3 (12.0-20.0); Calcium, Blood 9.5 mg/dL (8.5-10.1); Creatinine, Blood 0.91 mg/dL (0.40-1.00); Globulin, Blood 4.3 g/dL (2.2-4.0); Total Protein, Blood 7.8 g/dL (6.4-8.2)
== END | disposition home or self-care (01) ==
LOC: LAB 11:41 → LAB SHORT 11:41
PROVIDERS: Physician Assistant
DX: R11.2 Nausea with vomiting, unspecified (principal)
CPT/HCPCS: 80053; 83690; 85025

== ENCOUNTER 2024-10-27 03:33 | Emergency (ER) | payer MEDICARE ==
[~2024-10-27] VITALS: Ht 160 cm; Wt 63.5 kg
[2024-10-27] MEDS ORDERED: Dicyclomine HCl 10 MG/ML 2ML Amp IM ONE (03:50)
[2024-10-27] MEDS ORDERED: Ondansetron HCl 2 MG / ML 2ML Vial IV ONE (03:50)
[2024-10-27] MEDS ORDERED: NS 1,000 ML IV SCH ×2 (03:50→05:20)
[2024-10-27] MEDS ORDERED: Ondansetron HCl 2 MG / ML 2ML Vial ONE (03:51)
[2024-10-27 03:55] LABS: BASOPHILS ABSOLUTE AUTO 0.06 K/mm3 (0.00-0.23); BASOPHILS PERCENT AUTO 0 % (0-2); EOSINOPHILS ABSOLUTE AUTO 0.11 K/mm3 (0.00-0.68); EOSINOPHILS PERCENT AUTO 1 % (0-6); Hematocrit 41.8 % (33.0-51.0); Hemoglobin 13.9 g/dL (11.5-16.0); IMMATURE GRAN ABSOLUTE AUTO 0.05 K/mm3 (0.00-0.10); IMMATURE GRAN PERCENT AUTO 0 % (0-1); LYMPHOCYTES ABSOLUTE AUTO 2.65 K/mm3 (0.84-5.20); LYMPHOCYTES PERCENT AUTO 18 % (21-46); MONOCYTES PERCENT AUTO 6 % (4-13); Mean Corpuscular HGB 28.5 pg (26.0-34.0); Mean Corpuscular HGB Conc 33.3 g/dL (31.5-36.5); Mean Corpuscular Volume 86 fL (80-100); Mean Platelet Volume 9.6 fL (9.1-12.4); NEUTROPHILS ABSOLUTE AUTO 10.97 K/mm3 (1.96-9.15); NEUTROPHILS PERCENT AUTO 75 % (41-73); Platelet Count 423 K/mm3 (150-400); RDW Coefficient Variation 12.4 % (11.7-14.2); RDW Standard Deviation 38.7 fL (35.1-46.3); Red Blood Cell Count 4.87 M/mm3 (3.80-5.20); White Blood Cell Count 14.74 K/mm3 (4.00-11.30)
[2024-10-27 04:16] LABS: Albumin, Blood 3.3 g/dL (3.4-5.0); Albumin/Globulin Ratio 0.7 (0.8-1.8); Bilirubin, Total 0.4 mg/dL (0.1-1.0); Bun/Creatinine Ratio 18.8 (12.0-20.0); Calcium, Blood 9.8 mg/dL (8.5-10.1); Creatinine, Blood 0.75 mg/dL (0.40-1.00); Globulin, Blood 4.8 g/dL (2.2-4.0); Potassium, Blood 3.9 mmol/L (3.5-5.5); Total Protein, Blood 8.1 g/dL (6.4-8.2)
[2024-10-27 06:00] VITALS: BP 149/73
[2024-10-27 06:14] LABS: Source, Urine Clean Catch
[2024-10-27 06:24] LABS: Appearance, Urine Clear (Clear); Bilirubin, Urine Neg (Neg); Blood, Urine 1+ (Neg); Glucose Qualitative, Urine Neg (Neg); Ketones, Urine 3+ (Neg); Leukocyte Esterase, Urine 2+ (Neg); Nitrite, Urine Neg (Neg); Protein, Urine Neg (Neg); Urobilinogen, Urine NORM (Normal)
[2024-10-27 06:54] LABS: Color, Urine Pale Yellow (P-Yellow)
[2024-10-27 06:58] LABS: Red Blood Cells, Urine 0-2 /hpf (0-2)
[2024-10-27 06:59] LABS: Bacteria Rare /hpf; Mucus Light (0-Heavy); Squamous Epithelial Cells Rare /hpf (Few)
[2024-10-27 08:48] LABS: C DIFFICILE DNA NEGATIVE (Negative)
[2024-10-27] MEDS ORDERED: LOPE2C PO (09:45)
[2024-10-27] MEDS ORDERED: METO10 PO (09:45)
== END 2024-10-27 10:20 | disposition home or self-care (01) ==
LOC: ER 03:33
PROVIDERS: Emergency Medicine
DX: K57.32 Diverticulitis of large intestine without perforation or abscess without bleeding (principal); K21.9 Gastro-esophageal reflux disease without esophagitis; I10 Essential (primary) hypertension; J44.9 Chronic obstructive pulmonary disease, unspecified; Z87.891 Personal history of nicotine dependence; Z79.51 Long term (current) use of inhaled steroids; Z79.899 Other long term (current) drug therapy; Z91.048 Other nonmedicinal substance allergy status; Z88.2 Allergy status to sulfonamides; Z91.018 Allergy to other foods
CPT/HCPCS: 74177; 80053; 81001; 83605; 83735; 85025; 87077; 87086; 87186; 87493; 93005; 93010; 96361; 96372-59; 96374-59; 99284-25; J0500; J2405; J7030; Q9967

== ENCOUNTER → 2025-07-11 | Outpatient (CLI) | payer MEDICARE ==
[~2025-07-11] MED LIST changes: +LOPE2C PO; +METO10 PO
[2025-07-11 16:43] LABS: BASOPHILS ABSOLUTE AUTO 0.06 K/mm3 (0.00-0.23); BASOPHILS PERCENT AUTO 1 % (0-2); EOSINOPHILS ABSOLUTE AUTO 0.13 K/mm3 (0.00-0.68); EOSINOPHILS PERCENT AUTO 2 % (0-6); Hematocrit 43.6 % (33.0-51.0); Hemoglobin 14.5 g/dL (11.5-16.0); IMMATURE GRAN ABSOLUTE AUTO 0.02 K/mm3 (0.00-0.10); IMMATURE GRAN PERCENT AUTO 0 % (0-1); LYMPHOCYTES ABSOLUTE AUTO 1.50 K/mm3 (0.84-5.20); LYMPHOCYTES PERCENT AUTO 23 % (21-46); MONOCYTES ABSOLUTE AUTO 0.64 K/mm3 (0.16-1.47); MONOCYTES PERCENT AUTO 10 % (4-13); Mean Corpuscular HGB Conc 33.3 g/dL (31.5-36.5); Mean Corpuscular Volume 87 fL (80-100); NEUTROPHILS ABSOLUTE AUTO 4.14 K/mm3 (1.96-9.15); NEUTROPHILS PERCENT AUTO 64 % (41-73); NRBC ABSOLUTE 0.00 K/mm3 (0.00-0.02); NRBC Auto 0.0 /100 WBC (0.0-0.2); RDW Coefficient Variation 12.7 % (11.7-14.2); RDW Standard Deviation 40.3 fL (35.1-46.3)
== END ==
LOC: LAB 14:53 → LAB SHORT 14:53
PROVIDERS: Hospitalist
DX: E55.9 Vitamin D deficiency, unspecified (principal); R53.83 Other fatigue
CPT/HCPCS: 82306; 84443; 85025